=== PATIENT | male | born 1940 | race Caucasian/White ===

== ENCOUNTER → 2017-10-12 11:49 | Outpatient (CLI) | payer MEDICARE, BC, SELFPAY ==
[2017-10-12 12:28] VITALS: BP 132/65; PULSE 48; RESP 12; TEMP 36; O2SAT 98
[2017-10-12] MEDS: Dexamethasone Sod. Phos./Pres-Free 10 MG/ML VIAL IJ (12:43)
[2017-10-12] MEDS: Omnipaque 240 MG/ML 50 ML BTL IJ (12:43)
[2017-10-12 12:55] VITALS: BP 158/80; PULSE 55; RESP 19; O2SAT 98
--- NOTE | 2017-10-12 13:00 | DI.REPORT_ITS ---
SYMPTOMS/DIAGNOSIS: LUMBAR EPIDURAL STEROID INJECTION, LUMBAR RADICULOPATHY PAIN CLINIC: Fluoroscopy Time: 42.1 sec Images submitted from the pain clinic demonstrate needle positioning over the midline in the lower lumbar spine in connection with a lumbar epidural steroid injection. Please see Dr. Maya's procedure report for further information.
--- NOTE | 2017-10-12 13:01 | PDOC.PAIN_ITS ---
Date of Service: 10/12/17 Time of Service: 12:56 Pain Clinic Procedure Note CAUNDAL EPIDURAL STEROID WITH CATHETER INJECTION PROCEDURE NOTE COMMENTS: He had this before and did very well with it. DX: lumbar radiculopathy ROGELIO HELTON has been referred to the [facility] for lumbar epidural steroid injection. Patient was greeted by the nurse who verified patients name and . Patient was then taken to the fluoroscopy suite. Patient was interviewed and the medical record reviewed. There were no medical , pharmacologic, radiographic, or other structural contraindications to attempting fluoroscopically guided lumbar epidural steroid injection. Risks and expected side effects as well as potential benefits of the procedure were reviewed and voiced concerns addressed. The patient consent form was signed and witnessed. Standard time-out procedure was performed. Patient was placed in the prone position on the fluoroscopy table and automated blood pressure cuff and pulse oximeter applied. The skin entry point for entering/approaching the epidural space at the sacral hiatus and marked. Following thorough chlorhexadine preparation of the skin and draping and 1% lidocaine infiltration of the skin entry point and subcutaneous tissues, a 17 gauge Touhy needle was placed under fluoroscopic guidance and with loss of resistance technique into the epidural space. Needle tip placement and depth were aided and confirmed by fluoroscopy. There was no paresthesia or return of blood or CSF through the needle. An Arrow cath was thread to the L4 vertebral body and 1 cc's of Omnipaque 240 was injected with clear epidural spread confirmed with fluoroscopy. 15 mg Dexamethasone was injected. There was not any unusual discomfort expressed. Vital signs were stable throughout the procedure and were as recorded in nursing records. Follow up plans and appointments were discussed.Post procedure instruction was given as documented in nursing records and having met discharge criteria and was discharged from the [facility]. COMMENTS: Call with any problems or questions
== END ==
PROVIDERS: PCP Family Medicine; Visit Provider Preventive Medicine Occupational Medicine
DX: M54.16 Radiculopathy, lumbar region (principal)
CPT/HCPCS: 62323; 72100; Q9967

== ENCOUNTER 2017-12-05 10:12 | Outpatient (CLI) | payer MEDICARE, BC, SELFPAY ==
[2017-12-05 10:32] VITALS: BP 128/65; PULSE 54; RESP 20; TEMP 36.4; O2SAT 98
[2017-12-05] MEDS: methylPREDNISolone ACETATE 40 MG/ML VIAL IJ (11:10)
--- NOTE | 2017-12-05 11:22 | DI.RAD_ITS ---
SYMPTOMS/DIAGNOSIS: LUMBAR RADICULOPATHY C-ARM FLUOROSCOPY OF THE SPINE: Fluoroscopy Time: 19.5 sec, 5.37 mGy Fluoroscopy was provided for guidance with Pain Clinic injection. Hard copy images show placement of a needle at the L5-S1 level and an injection of contrast. Aortic and iliac stents are also noted. Please see procedure note for details.
[2017-12-05 11:25] VITALS: BP 151/84; PULSE 56; RESP 19; O2SAT 98
--- NOTE | 2017-12-05 11:25 | PDOC.PAIN ---
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 The last one was with dexamethasone and did not help. He has severe stenosis at L4-5 with claudication.: . . He has severe stenosis at L4-5 ROGELIO HELTON has been referred to the [facility] for lumbar epidural steroid injection. Patient was greeted by the nurse who verified patients name and . Patient was then taken to the fluoroscopy suite. Patient was interviewed and the medical record reviewed. There were no medical, pharmacologic, radiographic, or other structural contraindications to attempting fluoroscopically guided lumbar epidural steroid injection. Risks and expected side effects as well as potential benefits of the procedure were reviewed and voiced concerns addressed. The patient consent form was signed and witnessed. Standard time-out procedure was performed. Patient was placed in the prone position on the fluoroscopy table and automated blood pressure cuff and pulse oximeter applied. The skin entry point for entering/approaching the epidural space by a {L5-S1} and marked. Following thorough chlorhexadine preparation of the skin and draping and 1% lidocaine infiltration of the skin entry point and subcutaneous tissues, a 17 gauge Touhy needle was placed under fluoroscopic guidance and with loss of resistance technique into the epidural space. Needle tip placement and depth were aided and confirmed by fluoroscopy. There was no paresthesia or return of blood or CSF through the needle. An Arrow cath was thread to the {L4 midline} and 1 cc's of Omnipaque 240 was injected with clear epidural spread confirmed with fluoroscopy. 80mg depomedrol was injected. There was not any unusual discomfort expressed. Vital signs were stable throughout the procedure and were as recorded in nursing records. Follow up plans and appointments were discussed.Post procedure instruction was given as documented in nursing records and having met discharge criteria and was discharged from the [facility]. COMMENTS: Follow-up as needed. Repeat if he has some relief of pain that lasts for several months at least otherwise is to have surgical evaluation.
[2017-12-05] MEDS: Omnipaque 240 MG/ML 50 ML BTL IJ (11:27)
--- NOTE | 2017-12-05 11:29 | PDOC.PAIN_ITS ---
Pain Clinic Procedure Note Current Active Problems Problem Status Onset Spinal stenosis of lumbar region without neurogenic claudication Chronic EPIDURAL STEROID WITH CATHETER INJECTION PROCEDURE NOTE COMMENTS: Patient had 3 epidural steroid injections first 2 were with Depo- Medrol and lasted several months each. The last one was with dexamethasone and did not help. He has severe stenosis at L4-5 with claudication.: . . He has severe stenosis at L4-5 ROGELIO HELTON has been referred to the [facility] for lumbar epidural steroid injection. Patient was greeted by the nurse who verified patients name and . Patient was then taken to the fluoroscopy suite. Patient was interviewed and the medical record reviewed. There were no medical , pharmacologic, radiographic, or other structural contraindications to attempting fluoroscopically guided lumbar epidural steroid injection. Risks and expected side effects as well as potential benefits of the procedure were reviewed and voiced concerns addressed. The patient consent form was signed and witnessed. Standard time-out procedure was performed. Patient was placed in the prone position on the fluoroscopy table and automated blood pressure cuff and pulse oximeter applied. The skin entry point for entering/approaching the epidural space by a {L5-S1} and marked. Following thorough chlorhexadine preparation of the skin and draping and 1% lidocaine infiltration of the skin entry point and subcutaneous tissues, a 17 gauge Touhy needle was placed under fluoroscopic guidance and with loss of resistance technique into the epidural space. Needle tip placement and depth were aided and confirmed by fluoroscopy. There was no paresthesia or return of blood or CSF through the needle. An Arrow cath was thread to the {L4 midline} and 1 cc's of Omnipaque 240 was injected with clear epidural spread confirmed with fluoroscopy. 80mg depomedrol was injected. There was not any unusual discomfort expressed. Vital signs were stable throughout the procedure and were as recorded in nursing records. Follow up plans and appointments were discussed.Post procedure instruction was given as documented in nursing records and having met discharge criteria and was discharged from the [facility]. COMMENTS: Follow-up as needed. Repeat if he has some relief of pain that lasts for several months at least otherwise is to have surgical evaluation.
== END 2017-12-05 10:32 ==
PROVIDERS: PCP Family Medicine; Visit Provider Anesthesiology Pain Medicine
DX: M48.061 Spinal stenosis, lumbar region without neurogenic claudication (principal); G89.29 Other chronic pain
CPT/HCPCS: 62323; 72100; J1030; Q9967

== ENCOUNTER 2018-05-16 04:42 | Outpatient (CLI) | payer MEDICARE, BC, SELFPAY ==
[2018-05-16 11:09] LABS: Anion Gap 7.4 mmol/L (3-11); BUN 60 mg/dL (7-18); CO2 29.6 mmol/L (21.0-32.0); CREATININE 1.98 mg/dL (0.70-1.30); Calcium 9.2 mg/dL (8.5-10.1); Chloride 103 mmol/L (98-107); Estimated GFR 32.77 (mL/min/1.73m2); Glucose 95 mg/dL (70-100); Potassium 4.4 mmol/L (3.5-5.1); Sodium 140 mmol/L (136-145)
== END 2018-05-16 05:02 ==
PROVIDERS: PCP Family Medicine; Visit Provider Internal Medicine Nephrology
DX: N18.3 Chronic kidney disease, stage 3 (moderate) (principal)
CPT/HCPCS: 36415; 80048

== ENCOUNTER 2018-12-18 01:52 | Outpatient (CLI) | payer MEDICARE, BC, SELFPAY ==
[2018-12-18 12:59] LABS: Calculated LDL 78 mg/dL; Cholesterol 144 mg/dL (50-200); HDL Cholesterol 48 mg/dL (40-60); Triglyceride 92 mg/dL (30-150)
== END 2018-12-18 02:12 ==
PROVIDERS: PCP Family Medicine; Visit Provider Family Medicine
DX: I25.10 Atherosclerotic heart disease of native coronary artery without angina pectoris (principal)
CPT/HCPCS: 36415; 80061

== ENCOUNTER 2019-03-29 11:42 | Emergency (ER) | payer MEDICARE, BC, SELFPAY ==
[2019-03-29] VITALS (15 sets, daily range): BP systolic 155–164; BP diastolic 70–87; PULSE 59–86; RESP 14–20; TEMP 36.5–36.6; O2SAT 95–99
--- NOTE | 2019-03-29 11:59 | W.ED.GENAD ---
Discharge Plan Disposition Patient Disposition: HOME Condition: Fair Discharge Details Chief Complaint: Chest Pain Clinical Impression: Chest pain, Fatigue, RUMA (acute kidney injury) Primary Care Provider: Yvan Bhatia ED Provider: Martina Farrell Home Meds and New Rx's Prescriptions: Continued nystatin 100,000 unit/gram cream 1 applic TP BID Qty: 30 RF: 3 lamotrigine 150 mg tablet 150 mg PO As Directed Qty: 225 RF: 4 metoprolol succinate 200 mg tablet extended release 24 hr 200 mg PO DAILY Qty: 90 RF: 4 olanzapine [Zyprexa] 5 mg tablet 5 mg PO DAILY Qty: 90 RF: 4 simvastatin [Zocor] 40 mg tablet 40 mg PO HS Qty: 90 RF: 4 V-Xyxz-Slavlod 250 mg tablet 0.5 tab PO BID Qty: 180 RF: 4 aspirin 325 MG tablet 325 mg PO QAM RF: 0 nitroglycerin [Nitrostat] 0.4 MG tablet, sublingual 0.4 mg Sublingual PRN Qty: 25 RF: 4 triamcinolone acetonide 15 GM cream 15 gm Topical BID Qty: 1 RF: 6 finasteride [Proscar] 5 mg tablet 5 mg PO DAILY Qty: 90 RF: 4 ibuprofen 600 mg tablet 600 mg PO TID PRN (Reason: pain) Qty: 90 RF: 4 ipratropium bromide 42 mcg (0.06 %) spray,non-aerosol 2 spray NS TID PRN (Reason: allergy symptoms) Qty: 1 RF: 3 clonazepam 0.5 mg tablet 0.25 mg PO BID Qty: 90 RF: 3 Acetaminophen 500 MG capsule 500 mg PO Q4H PRN (Reason: Pain) Qty: 20 RF: 0 Discharge Instructions Instructions: Chest Pain (ED), Fatigue (ED) Additional Instructions: Encourage water intake. Please follow-up the beginning of next week with your primary care provider for reevaluation. You have a stress test next Monday, at 2:15 PM, please come to the radiology entrance. If you develop chest pain, shortness of breath, difficulty breathing or other worsening symptoms please seek care urgently once again. Referrals: Yvan Bhatia MD [Primary Care Provider] - Discharge Data Discharge Date/Time-TO BE ENTERED AT DEPARTURE: 03/29/19 16:35 Medical Decision Making Patient is a pleasant 78-year-old male presenting today with chief complaint of chest pain. He reports that for the past week he had increased fatigue. He reports that Monday he slept for approximately 24 hours. States that he has had this historically and associates this with episodes of bipolar. States that this did seem similar to that. Reports that on Monday he then had sudden onset of chest pain. He reports that he was at rest when this occurred. Reports 5 minutes of chest pain that suddenly resolved. He reports it is either another heart attack or to my bipolar. He denies having had chest pain associated with his bipolar issues historically. He was seen by his primary care provider today who referred him here for further evaluation. Patient does have history of 3 myocardial infarctions and stent placement. Patient is prescribed nitroglycerin but did not use this at the time of his discomfort. He denies any shortness of breath, back pain, radiation of the chest pain, nausea/vomiting, belly pain. No change in bowel or bladder function. He denies any fevers but states that he was having chills at the beginning of the week and felt more cold than typical. No recent travel. Past medical history concerning for AAA repair, Parkinson's disease, JONO, hypotonic bladder, hyperlipidemia, hypertension, depressed bipolar 1 disorder, CKD stage III, COPD, BPH. Patient took 325 mg of aspirin this morning. EKG was reviewed by Dr. Izaguirre. Patient in NSR with rate of 62. No change from prior ECG in 2008. He advises no acute ischemic changes. CXR reviewed by radiologist: LUNGS: Clear. No pleural abnormality seen. HEART: Normal. MEDIASTINUM: Normal. OTHER FINDINGS:Normal. BONE:Normal. IMPRESSION: No acute pulmonary finding. Labs reviewed. No leukocytosis, patient's not anemic. His creatinine is 2.83. He does have a history of chronic kidney disease but this is up from his baseline. He was last checked on 05/16/2018 at which time he was 1.98. BUN is 61. Patient reports that as he has to self cath, he does not drink any water. Patient is receiving hydration here. No significant electrolyte abnormalities. Initial troponin is less than 0.05. Plan for repeat troponin. With the acute kidney injury and the patient's history, I did discuss inpatient admission with him. As he would have to stay till Monday to have any further cardiac work-up completed as it is Monday, patient would prefer to go home. I did discuss this with Dr. Bhatia who advised that he would be able to follow-up closely with the patient and agrees that if repeat troponin is within normal limits outpatient management would be appropriate. We are able to schedule an outpatient stress test for Monday. Repeat troponin is less than 0.05. I discussed this finding with the patient. Again, we discussed in patient versus outpatient management of his symptoms and patient would prefer to be discharged home at this time. We did discuss at length if he has recurrent chest pain and that he should return immediately. We also discussed his acute kidney injury. He is followed closely by nephrology. I did encourage water intake despite the fact that this is more bothersome for him as he needs to urinate more frequently. He was given strict return precautions. He will follow-up with primary care. All his questions and concerns were addressed and is agreement this plan. He return immediately with any new or worsening symptoms. HPI General Mode of arrival: ambulatory. Date/Time Provider Initiated Documentation: 03/29/19 11:53. Limitations to Documentation: no limitations. Information obtained by: patient and RN notes reviewed. History of Present Illness 78 year old M presents to the emergency department with the chief complaint of chest pain, described as severe and similar to prior episodes, Quality is described as stabbing, and is localized to the chest. Patient reports no radiation. Patient started experiencing this day(s) (3) and it has been now resolved (lasted 5 minutes). No relieving factors improve symptom(s), No exacerbating factors reported . Patient notes no other symptoms.. Patient did receive the following treatments prior to arrival, none Related Data Home Medications Medication Instructions Recorded Confirmed aspirin 325 mg PO QAM 08/14/12 03/29/19 nitroglycerin [Nitrostat] 0.4 mg SUBLINGUAL PRN #25 08/14/12 03/29/19 Acetaminophen 500 mg PO Q4H PRN #20 cap 08/10/16 03/29/19 triamcinolone acetonide 15 gm TOPICAL BID #1 script 07/03/17 03/29/19 nystatin 100,000 unit/gram topical 1 applic TP BID #30 gm 04/12/18 03/29/19 cream finasteride 5 mg tablet 5 mg PO DAILY #90 tab-cap 08/21/18 03/29/19 lamotrigine 150 mg tablet 150 mg PO As Directed #225 tab-cap 08/21/18 03/29/19 metoprolol succinate 200 mg 200 mg PO DAILY #90 tab 08/21/18 03/29/19 tablet,extended release 24 hr olanzapine 5 mg tablet 5 mg PO DAILY #90 tab-cap 08/21/18 03/29/19 simvastatin 40 mg tablet 40 mg PO HS #90 tab 08/21/18 03/29/19 sodium di- and 0.5 tab PO BID #180 tab 08/21/18 03/29/19 monophosphate-potassium phos monobasic 250 mg tablet ibuprofen 600 mg tablet 600 mg PO TID PRN #90 tab-cap 11/08/18 03/29/19 ipratropium bromide 42 mcg (0.06 2 spray NS TID PRN #1 ml 11/08/18 03/29/19 %) nasal spray clonazepam 0.5 mg tablet 0.25 mg PO BID #90 tab-cap 03/27/19 03/29/19 Previous Rx's Medication Instructions Recorded Acetaminophen 500 mg PO Q4H PRN #20 cap 08/10/16 triamcinolone acetonide 15 gm TOPICAL BID #1 script 07/03/17 nystatin 100,000 unit/gram topical 1 applic TP BID #30 gm 04/12/18 cream finasteride 5 mg tablet 5 mg PO DAILY #90 tab-cap 08/21/18 lamotrigine 150 mg tablet 150 mg PO As Directed #225 tab-cap 08/21/18 metoprolol succinate 200 mg 200 mg PO DAILY #90 tab 08/21/18 tablet,extended release 24 hr olanzapine 5 mg tablet 5 mg PO DAILY #90 tab-cap 08/21/18 simvastatin 40 mg tablet 40 mg PO HS #90 tab 08/21/18 sodium di- and 0.5 tab PO BID #180 tab 08/21/18 monophosphate-potassium phos monobasic 250 mg tablet ibuprofen 600 mg tablet 600 mg PO TID PRN #90 tab-cap 11/08/18 ipratropium bromide 42 mcg (0.06 2 spray NS TID PRN #1 ml 11/08/18 %) nasal spray clonazepam 0.5 mg tablet 0.25 mg PO BID #90 tab-cap 02/12/20 Allergies Allergy/AdvReac Type Severity Reaction Status Date / Time lithium AdvReac Severe KIDNEY Verified 03/29/19 11:54 PROBLEM fluoxetine AdvReac Unknown Verified 03/29/19 11:54 General Stated Complaint: Chest Pain MATT: 3 Review of Systems Constitutional Constitutional: Reports as per HPI, Denies chills, Reports fatigue, Denies fever(s), Denies headache(s), Denies lethargy and Denies poor appetite Eyes Eyes: Denies change in vision ENT Ears, Nose, Mouth, and Throat: Denies dizziness and Denies headache(s) Cardiovascular Cardiovascular: Reports as per HPI, Reports chest pain, Reports chest pain at rest, Denies chest pain with activity, Denies diaphoresis, Denies syncope, Denies pedal edema, Denies leg edema, Denies lightheadedness, Denies radiating jaw, neck or arm pain, Denies palpitations, Denies dyspnea and Denies dyspnea on exertion Respiratory Respiratory: Reports as per HPI, Denies chest congestion, Denies cough, Denies pain on inspiration, Denies pain with cough, Denies dyspnea, Denies dyspnea on exertion and Denies wheezing Gastrointestinal Gastrointestinal: Reports as per HPI, Denies abdominal pain, Denies diarrhea, Denies nausea and Denies vomiting Genitourinary Genitourinary: Denies system reviewed and no additional complaints, except as docu (denies change in urinary habits) Musculoskeletal Musculoskeletal: Reports as per HPI and Denies back pain Integumentary/Breasts Skin/Breast: Reports as per HPI and Denies rash Neurologic Neurologic: Reports as per HPI, Denies dizziness, Denies syncope and Denies headache(s) Endocrine Endocrine: Reports fatigue and Denies palpitations Allergic/Immunologic Allergic/Immunologic: Denies wheezing [facility] Medical History Abdominal aortic aneurysm (AAA) Benign prostatic disease Chronic obstructive lung disease Chronic obstructive lung disease (Chronic) Chronic renal failure, stage 3 (moderate) Chronic renal failure, stage 3 (moderate) (Chronic 06/12/15) Claustrophobia Claustrophobia (Chronic 11/29/16) 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 HTN (hypertension) Hyperlipidemia Hyperlipidemia (Chronic) Hypotonic bladder Hypotonic bladder (Chronic) Neck pain (Inactive) Obstructive sleep apnea syndrome (Chronic) JONO (obstructive sleep apnea) Parkinson's disease Parkinson's disease (Chronic) mild Raised prostate specific antigen Spinal stenosis of lumbar region Spinal stenosis of lumbar region without neurogenic claudication (Chronic 11/29/16) Vasomotor rhinitis Vasomotor rhinitis (Chronic 03/27/15) Vitamin D deficiency Vitamin D deficiency (Chronic 09/15/16) Surgical History Angioplasty History of angioplasty (Inactive) History of intravascular stent placement (Inactive) Rotator Cuff Repair (~03/2008) Status post AAA (abdominal aortic aneurysm) repair (Chronic 11/29/16) Status post rotator cuff repair (Inactive) Stent placement X 3 Social History (Updated 08/22/18 @ 11:16 by Joby Woo) Smoking/Tobacco Use Status: Former Tobacco Use Second Hand Exposure: No Alcohol Intake: never Details: Pt reports he no longer drinks alcohol. Drug use: Never Substance use type: does not use Caregiver/Support person: No Housing: house Communication Needs: Hard of Hearing Do you need help understanding health information?: Often Pets and animals: No Sexually active: No Do you think of yourself as: straight/heterosexual Current gender identity: male What is your relationship status?: How often do you talk on the phone with friends or family?: once per week How often do you get together with friends or relatives?: decline to answer How often do you attend methodist or yazdanism services?: decline to answer Do you belong to any clubs or organized social groups?: no Panel score (0-1 are the most socially isolated patients): 0 What type of physical activity do you participate in: walking Duration: 15-30 minutes/day Frequency: 1-2 times per week Mary/Protestant: Taoism Special mary needs: No Seatbelt use: always Helmet use: Yes Helmet use: always Drive intox or ride w/intox commercial driver's license driver: No Do you feel safe at home: Yes Do you feel safe in your relationship?: Yes Exam Const General: cooperative, healthy appearing, comfortable, no acute distress and well developed Nutritional Appearance: well nourished and overweight Orientation: alert, awake and oriented x3 HENMT Head: normal to inspection Ears: hearing grossly normal bilaterally Mouth: moist mucous membranes Chest Chest: normal inspection of the chest, normal palpation of entire chest wall and no crepitus Resp Effort & Inspection: normal respiratory effort, able to speak in complete sentences and no respiratory distress Auscultation: clear to auscultation bilaterally, no rales, no rhonchi and no wheezes Cardio Rate: regular rate Rhythm: regular rhythm Heart Sounds: S1 normal and S2 normal GI Inspection: normal to inspection, no edema and non-distended Palpation: soft, no hepatosplenomegaly, not firm, no guarding, not rigid and nontender Auscultation: normal bowel sounds Back/Spine/Pelvis Back: no CVA tenderness Thoracic/Lumbar Spine: thoracic and lumbar spine normal to inspection Skin General skin exam: no rashes or lesions noted Trauma: no lacerations or abrasions Neuro General: alert, awake and oriented x3 Cognition: normal cognition Speech: speech normal Gait: normal gait Extrem General: normal to inspection, normal capillary refill, no pedal edema, no calf tenderness and normal gait Psych Appearance: grossly normal and well kempt Mental Status: mental status grossly normal Speech and Movement: speech and movement normal Course Vital Signs Vital signs: Vital Signs Temperature 36.5 C 03/29/19 11:49 Pulse 83 03/29/19 11:49 Respiratory Rate 16 03/29/19 11:49 Blood Pressure 156/87 H 03/29/19 11:49 Pulse Oximetry 98 03/29/19 11:49 Temperature 36.5 C 03/29/19 11:49 Temperature Source Tympanic 03/29/19 11:49 Pulse 83 03/29/19 11:49 Respiratory Rate 16 03/29/19 11:49 Respiratory Effort Non-Labored 03/29/19 11:52 Blood Pressure 156/87 H 03/29/19 11:49 Blood Pressure Position Sitting 03/29/19 11:49 Pulse Oximetry 98 03/29/19 11:49 Oxygen Delivery Method Room Air 03/29/19 11:49 Oxygen Flow Rate 0 03/29/19 11:49 Pain Level 10 03/29/19 11:49
--- NOTE | 2019-03-29 12:15 | DI.RAD_ITS ---
EXAM: XR CHEST 2V PA LATERAL CLINICAL HISTORY: CP 3 days ago, hx of DC. TECHNIQUE: 2D digital imaging was performed. COMPARISON: No exams were available for comparison FINDINGS: LUNGS: Clear. No pleural abnormality seen. HEART: Normal. MEDIASTINUM: Normal. OTHER FINDINGS:Normal. BONE:Normal. IMPRESSION: No acute pulmonary findings.
[2019-03-29 13:06] LABS: Abs Immature Grans 0.01 k/cumm (0.0-0.09); Absolute Basophil Count 0.02 k/cumm (0.0-0.2); Absolute Lymphocyte Count 1.77 k/cumm (1.2-3.4); Absolute Monocyte Count 0.45 k/cumm (0.11-0.7); Absolute Neutrophil Count 5.13 k/cumm (1.2-6.7); Basophils % 0.3; Eosinophils % 3.9; HCT 40.2 % (40.0-50.0); HGB 13.5 g/dL (13.5-17.5); Immature Grans % 0.1 %; Mean Corp. HGB Concentration 33.6 g/dL (32.0-36.0); Mean Corpuscular Hemoglobin 29.7 pg (27.0-33.0); Mean Corpuscular Volume 88.4 fL (80-95); Monocytes % 5.9; Neutrophils % 66.8; Platelet Count 238 x1000/uL (130-400); RBC 4.55 m/cumm (4.50-6.00); RBC Distribution Width 13.9 % (11.8-14.1); White Blood Cell Count 7.68 k/cumm (4.4-10.8)
[2019-03-29] MEDS: Normal Saline 1,000 ML 125 ML IV (13:06)
[2019-03-29 13:30] LABS: ALT 17 U/L (16-63); AST 21 U/L (15-37); Albumin 3.3 g/dL (3.4-5.0); Alkaline Phosphatase 115 U/L (46-116); Anion Gap 9.6 mmol/L (3-11); BUN 61 mg/dL (7-18); Bilirubin, Total 0.2 mg/dL (0.2-1.0); CO2 25.4 mmol/L (21.0-32.0); CREATININE 2.83 mg/dL (0.70-1.30); Calcium 9.1 mg/dL (8.5-10.1); Chloride 108 mmol/L (98-107); Estimated GFR 21.64 (mL/min/1.73m2); Glucose 117 mg/dL (74-106); Magnesium 1.9 mg/dL (1.8-2.4); Potassium 3.5 mmol/L (3.5-5.1); Sodium 143 mmol/L (136-145); Total Protein 6.5 g/dL (6.4-8.2); Troponin I 0.05 ng/Ml (<0.06)
[2019-03-29 15:59] LABS: Troponin I 0.05 ng/Ml (<0.06)
== END 2019-03-29 16:35 | disposition home or self-care (01) ==
PROVIDERS: Emergency Provider Physician Assistant; PCP Family Medicine
DX: R53.83 Other fatigue (principal); R07.9 Chest pain, unspecified; N17.9 Acute kidney failure, unspecified; I25.2 Old myocardial infarction; Z95.5 Presence of coronary angioplasty implant and graft; G20 Parkinson's disease; I12.9 Hypertensive chronic kidney disease with stage 1 through stage 4 chronic kidney disease, or unspecified chronic kidney disease; N18.3 Chronic kidney disease, stage 3 (moderate); J44.9 Chronic obstructive pulmonary disease, unspecified; Z87.891 Personal history of nicotine dependence
CPT/HCPCS: 36415; 80053; 93005; 96360; 96361; 99285; 71046; 81003; 83735; 84484; 85025; 93010

== ENCOUNTER 2019-04-02 01:14 | Outpatient (CLI) | payer MEDICARE, BC, SELFPAY ==
--- NOTE | 2019-04-02 14:30 | ETT_ITS ---
APPROVED REPORT Exam: Exercise Treadmill Patient Location: Out-Patient Room/Bed: Stress Nurse: Isamar Bobo RN BMI: 28.78 Baseline Rhythm: Sinus Bradycardia Comment: R BBB and Occasional PVC's Indications: Patient testing today for further risk stratification. Patient reports he had an episode of left sided chest pain (09/22) which radiated to bilateral shoulders when washing his dishes last w [employer]. He states chest pain when away after 5 minutes of walking in his house. Of note, patient is a po or historian. Medical History Medical History: AAA repair 2017, chronic renal failure stage 3, Chronic Obstructive Lung Disease, Co ronary artery abnormality, depressed bipolar disorder, JONO, Parkinson???s Disease. Cardiac Medications: Aspirin, Nitrostat, Metoprolol Succinate XR, Simvastatin. Allergies: [place], Fluoxetine Cardiac Risk Factors: FHX of CAD, HTN, Hyperlipidemia, COPD Previous Cardiac Procedures: Angioplasty LAD 1995, Stent X3 2004. Pretest Chest Pain Characteristics: No chest pain Exercise History: Sedentary Physical Disabilities: Legs Lung Sounds: Clear to auscultation and diminished Heart Sounds: Regular Stress Test Details Test: Exercise stress testing was performed using a Jim protocol. Rest Stress HR Resting HR Supine: 50 bpm Max Heart Rate (APMHR): 140 bpm Resting HR Standin bpm Target HR (85% APMHR): 119 bpm Max HR Achieved: 117 bpm % of APMHR: 83 HR response to stress: Normal HR response to stress BP Resting BP Supine: 140/70 mmHg Resting BP Standin/70 mmHg Max BP: 150/58 mmHg BP response to stress: Normal blood pressure response to stress. ECG Resting ECG: RBBB Stress ECG: Sinus Rhythm, RBBB ST Change: Non-ischemic Arrhythmia: VPC's Recovery ECG: RBBB Clinical Reason for Termination: Patient having difficulty walking in treadmill safely Stress Symptoms: Patient reported left shoulder pain at approximatly 2 minutes 27 seconds of exercise --Patient poor historian--difficult to get more infomation from patient. Exercise duration: 3 min10 sec Highest Stage Reached: Stage 2: 2.5 mph at 12% grade. Exercise capacity: 4.82 METs Functional Capacity: Markedly diminished capacity Stress ECG Conclusion 1. Limited exercise tolerance of 4.82 METS. The patient described shoulder pain after 2-1/2 minutes of exercise 2. Normal heart rate and blood pressure response to exercise 3. Resting electrocardiogram shows right bundle branch block. Patient achieved 83% of predicted hear t rate for age without evidence of myocardial ischemia at this submaximal heart rate 4. Occasional ventricular ectopic beats were noted Protocol Used: Jim Protocol Stress Test Summary STAGE Time (mins) Speed (mph) Grade (%) HR BP SYMPTOMS METS Supine 50 140/70 Standing 54 130/70 1 3 1.7 10 4.6 2 6 2.5 12 7 3 9 3.4 14 10.2 4 12 4.2 16 12.9 5 15 5.0 18 17.2 1 min recovery 63 150/58 3 min recovery 49 130/68 6 min recovery 54 122/68
== END 2019-04-02 01:34 ==
PROVIDERS: PCP Family Medicine; Visit Provider Physician Assistant
DX: R07.9 Chest pain, unspecified (principal); N18.3 Chronic kidney disease, stage 3 (moderate); F31.9 Bipolar disorder, unspecified; I10 Essential (primary) hypertension; Z82.49 Family history of ischemic heart disease and other diseases of the circulatory system
CPT/HCPCS: 93016; 93018; 93017

== ENCOUNTER 2019-05-08 21:57 | Inpatient (IN) | payer MEDICARE, BC, SELFPAY ==
[2019-05-08] VITALS (13 sets, daily range): BP systolic 37–135; BP diastolic 27–106; PULSE 46–180; RESP 0–27; TEMP 30.1–31.4; O2SAT 93–100
--- NOTE | 2019-05-08 22:07 | W.ED.GENAD ---
Discharge Plan Disposition Patient Disposition: [facility] INPATIENT Condition: Serious Discharge Details Chief Complaint: AMS/LOC Clinical Impression: Hypothermia, Acute renal failure due to rhabdomyolysis, Electrolyte abnormality, Acute UTI Primary Care Provider: Yvan Bhatia ED Provider: Roberto Love [place] Meds and New Rx's Prescriptions: No Action nystatin 100,000 unit/gram cream 1 applic TP BID Qty: 30 RF: 3 clonazepam 0.5 mg tablet 0.25 mg PO DAILY Qty: 45 RF: 3 lamotrigine 150 mg tablet 150 mg PO As Directed Qty: 225 RF: 4 metoprolol succinate 200 mg tablet extended release 24 hr 200 mg PO DAILY Qty: 90 RF: 4 olanzapine [Zyprexa] 5 mg tablet 5 mg PO DAILY Qty: 90 RF: 4 simvastatin [Zocor] 40 mg tablet 40 mg PO HS Qty: 90 RF: 4 I-Pehm-Dynbdzb 250 mg tablet 0.5 tab PO BID Qty: 180 RF: 4 aspirin 325 MG tablet 325 mg PO QAM RF: 0 nitroglycerin [Nitrostat] 0.4 MG tablet, sublingual 0.4 mg Sublingual PRN Qty: 25 RF: 4 triamcinolone acetonide 15 GM cream 15 gm Topical BID Qty: 1 RF: 6 finasteride [Proscar] 5 mg tablet 5 mg PO DAILY Qty: 90 RF: 4 ibuprofen 600 mg tablet 600 mg PO TID PRN (Reason: pain) Qty: 90 RF: 4 ipratropium bromide 42 mcg (0.06 %) spray,non-aerosol 2 spray NS TID PRN (Reason: allergy symptoms) Qty: 1 RF: 3 Acetaminophen 500 MG capsule 500 mg PO Q4H PRN (Reason: Pain) Qty: 20 RF: 0 Medical Decision Making Patient arrives after being found down at home for unknown period of time. He is cold and cyanotic distally but is mentating essentially normally. He denies cough or shortness of breath. He denies pain. Second IV established. Temperature sensing Amaya placed. C-collar applied due to extensive bruising noted. Fluid resuscitation with warm LR initiated. Laboratory studies and CT scans ordered. Bear hugger applied. Initial consideration for COVID, though patient denies exposure and denies cough or shortness of breath. Patient mentation seemed to improve with fluids. Laboratory studies are markedly abnormal as expected. White count is elevated to 14. Hemoglobin and platelets are normal. Chemistry significant for potassium of 6.2, bicarb of 14.2 with an anion gap of 27, BUN 136 and creatinine 6.3. Magnesium high at 2.8. Calcium good at 8.3. CPK markedly elevated and greater than 10,000. Troponin 0.2 likely related to kidney injury and not infarction. Lactic acid 4.9. Liver functions elevated with AST 500 and ALT 150s. Urinalysis with UTI. Ceftriaxone ordered. After the initial 2 L fluid resuscitation with LR he was switched to saline for management of rhabdomyolysis. Initial rate ordered for [address] mL's per [address] scans are all negative for acute injury. Head CT negative. Cervical spine without fracture. Chest abdomen pelvis negative for traumatic injury and negative for acute changes specifically no pneumonia. COVID swab is canceled. Patient without symptoms, no CT findings, no exposure. He is UTI with hypothermia and rhabdomyolysis. He does have acute kidney injury and electrolyte abnormalities which will need to be followed closely. Case is discussed with hospitalist. Patient to be admitted to the ICU for further management. I have spoke to the patient son Adán, who lives in [facility]. Patient's daughter and son from [place] and [place] respectively are on their way. They are aware that they will not be allowed to visit. Confirmed with family that patient will be full code. Medical Records Medical records reviewed: Yes I reviewed the patient's medical records. Lab Data Lab results reviewed: Yes I reviewed the patient's lab results. ECG Data Attestation: I personally reviewed and interpreted this ECG (s) as follows: Prior ECG tracings: available for review Interpretation: EKG shows atrial fibrillation which is rate controlled at 55. He has normal right bundle branch block/left anterior fascicular block. QT appears a little long though not markedly so. No acute ST elevation or depression. HPI General Mode of arrival: EMS. Date/Time Provider Initiated Documentation: 05/08/19 22:06. Limitations to Documentation: no limitations. Information obtained by: patient, EMS and old records reviewed. HPI Narrative: Patient is brought in by EMS after being found down on the floor at his home this evening. Patient is last known to be fine on Monday. Meals on wheels then delivering food for him. This evening it was noticed that he had not taken in the meals delivered previously. They decided to check on him. He was found down on the floor in his underwear too weak to get up but awake and conversant. EMS was called. Patient found to be hypothermic. He was awake and alert. No complaints of pain anywhere. Noted to be mottled with bruising and abrasions all over. IV was established and patient transported here for further evaluation and management. On arrival he has no complaint of pain. He is not able to tell me how long he was down for. He denies having cough or shortness of breath. He denies vomiting or diarrhea. Related Data Home Medications Medication Instructions Recorded Confirmed aspirin 325 mg PO QAM 08/14/12 04/09/19 nitroglycerin [Nitrostat] 0.4 mg SUBLINGUAL PRN #25 08/14/12 04/09/19 Acetaminophen 500 mg PO Q4H PRN #20 cap 08/10/16 04/09/19 triamcinolone acetonide 15 gm TOPICAL BID #1 script 07/03/17 04/09/19 nystatin 100,000 unit/gram topical 1 applic TP BID #30 gm 04/12/18 04/09/19 cream finasteride 5 mg tablet 5 mg PO DAILY #90 tab-cap 08/21/18 04/09/19 lamotrigine 150 mg tablet 150 mg PO As Directed #225 tab-cap 08/21/18 04/09/19 metoprolol succinate 200 mg 200 mg PO DAILY #90 tab 08/21/18 04/09/19 tablet,extended release 24 hr olanzapine 5 mg tablet 5 mg PO DAILY #90 tab-cap 08/21/18 04/09/19 simvastatin 40 mg tablet 40 mg PO HS #90 tab 08/21/18 04/09/19 sodium di- and 0.5 tab PO BID #180 tab 08/21/18 04/09/19 monophosphate-potassium phos monobasic 250 mg tablet ibuprofen 600 mg tablet 600 mg PO TID PRN #90 tab-cap 11/08/18 04/09/19 ipratropium bromide 42 mcg (0.06 2 spray NS TID PRN #1 ml 11/08/18 04/09/19 %) nasal spray clonazepam 0.5 mg tablet 0.25 mg PO DAILY #45 tab-cap 04/09/19 04/09/19 Previous Rx's Medication Instructions Recorded Acetaminophen 500 mg PO Q4H PRN #20 cap 08/10/16 triamcinolone acetonide 15 gm TOPICAL BID #1 script 07/03/17 nystatin 100,000 unit/gram topical 1 applic TP BID #30 gm 04/12/18 cream finasteride 5 mg tablet 5 mg PO DAILY #90 tab-cap 08/21/18 lamotrigine 150 mg tablet 150 mg PO As Directed #225 tab-cap 08/21/18 metoprolol succinate 200 mg 200 mg PO DAILY #90 tab 08/21/18 tablet,extended release 24 hr olanzapine 5 mg tablet 5 mg PO DAILY #90 tab-cap 08/21/18 simvastatin 40 mg tablet 40 mg PO HS #90 tab 08/21/18 sodium di- and 0.5 tab PO BID #180 tab 08/21/18 monophosphate-potassium phos monobasic 250 mg tablet ibuprofen 600 mg tablet 600 mg PO TID PRN #90 tab-cap 11/08/18 ipratropium bromide 42 mcg (0.06 2 spray NS TID PRN #1 ml 11/08/18 %) nasal spray clonazepam 0.5 mg tablet 0.25 mg PO DAILY #45 tab-cap 04/09/19 Allergies Allergy/AdvReac Type Severity Reaction Status Date / Time lithium AdvReac Severe KIDNEY Verified 04/09/19 15:12 PROBLEM fluoxetine AdvReac Unknown Verified 04/09/19 15:12 General MATT: 3 Review of Systems Unobtainable due to (Not obtained due to acuity of situation) [facility] Medical History Abdominal aortic aneurysm (AAA) Benign prostatic disease Chronic obstructive lung disease (Chronic) Chronic renal failure, stage 3 (moderate) (Chronic 06/12/15) Claustrophobia (Chronic 11/29/16) Coronary atherosclerosis of [place] coronary vessel (Chronic) angina-1995 LAD angioplasty; Stent in 2004 x3 Depressed bipolar I disorder (Chronic) Hearing loss (Chronic) A.D. HTN (hypertension) Hyperlipidemia (Chronic) Hypotonic bladder (Chronic) JONO (obstructive sleep apnea) Parkinson's disease (Chronic) mild Spinal stenosis of lumbar region Vasomotor rhinitis (Chronic 03/27/15) Vitamin D deficiency (Chronic 09/15/16) Surgical History History of angioplasty (Inactive) History of intravascular stent placement (Inactive) Status post AAA (abdominal aortic aneurysm) repair (Chronic 11/29/16) Status post rotator cuff repair (Inactive) Social History Smoking/Tobacco Use Status: Former Tobacco Use Second Hand Exposure: No Alcohol Intake: never Details: Pt reports he no longer drinks alcohol. Drug use: Never Substance use type: does not use Caregiver/Support person: No Housing: house Communication Needs: Hard of Hearing Do you need help understanding health information?: Often Pets and animals: No Sexually active: No Do you think of yourself as: straight/heterosexual Current gender identity: male What is your relationship status?: How often do you talk on the phone with friends or family?: once per week How often do you get together with friends or relatives?: decline to answer How often do you attend religion or confucianist services?: decline to answer Do you belong to any clubs or organized social groups?: no Panel score (0-1 are the most socially isolated patients): 0 What type of physical activity do you participate in: walking Duration: 15-30 minutes/day Frequency: 1-2 times per week Mary/Worship: Hinduism Special mary needs: No Seatbelt use: always Helmet use: Yes Helmet use: always Drive intox 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 Heart rate and blood pressure otherwise good as is his O2 saturations once good waveform is obtained. Const: WDWN elderly male in NAD. HEENT: NC/AT. Normal facial exam. Eyes: Normal conjunctiva and sclera. Neck: Supple. Trachea midline. No c-spine tenderness. Lungs: Normal respiratory effort. Lungs with slight wheeze/rhonchi right lateral. Cor: RRR without murmur/gallop. Diminished distal pulses but present on doppler. GI: Soft. NT/ND. No guarding or rebound. Back: No spinal tenderness. Neuro: A+O x 3. Normal speech, mentation a little slow. Cranial nerves II - XII grossly intact. No gross motor or sensory deficit. Ext: Distal extremities cyanotic and cold. No deformity or tenderness. Skin: Cold and dry. Large abrasions bilateral knees. Multiple areas of bruising noted throughout including back/arms/legs. Critical Care Time Critical Care Time Critical Care Time: Yes Total Critical Care Time: 60 Attestation: Upon my evaluation, this patient had a high probability of imminent or life-threatening deterioration, which required my direct attention, intervention, and personal management. I have personally provided minutes of critical care time exclusive of time spent on separately billable procedures. Time includes review of laboratory data, radiology results, discussion with consultants, and monitoring for potential decompensation. Interventions were performed as documented above.
[2019-05-08] MEDS: Lactated Ringers 1,000 ML 1000 ML IV ×2 (22:15)
[2019-05-08 22:30] LABS: HCT 48.4 % (40.0-50.0); HGB 16.5 g/dL (13.5-17.5); Mean Corp. HGB Concentration 34.1 g/dL (32.0-36.0); Mean Corpuscular Hemoglobin 29.5 pg (27.0-33.0); Mean Corpuscular Volume 86.6 fL (80-95); Mean Platelet Volume 10.6 fL (8.0-11.0); Platelet Count 198 x1000/uL (130-400); RBC 5.59 m/cumm (4.50-6.00)
[2019-05-08 22:32] LABS: Lactate 4.5 mmol/L (0.6-1.4)
[2019-05-08 22:35] LABS: Bilirubin Negative (Negative); Blood Large (Negative); Clarity Cloudy (Clear); Glucose Negative (Negative); Ketones Negative (Negative); Leukocyte Esterase Large (Negative); Nitrite Negative (Negative); Specific Gravity >= 1.030 (1.005-1.025); Urobilinogen 0.2 EU/dL (Up TO 0.2)
--- NOTE | 2019-05-08 22:37 | NUR.NOTE ---
Nursing Note:Glen hugger and warmed IVF started upon arrival.
[2019-05-08 22:41] LABS: Absolute Lymphocyte Count 0.42 k/cumm (1.2-3.4); Absolute Monocyte Count 0.71 k/cumm (0.11-0.7); Absolute Neutrophil Count 12.83 k/cumm (1.2-6.7)
[2019-05-08 22:42] LABS: Diff Comment Manual Differential; RBC Morphology Normal
[2019-05-08 22:46] LABS: WBC >50 HPF (0-5)
[2019-05-08 22:47] LABS: INR 1.3 (0.9-1.1); PTT Activated 29.4 sec (21.0-31.4)
[2019-05-08 22:51] LABS: Bacteria Many HPF (Negative); C & S Indicated? Yes
[2019-05-08 22:58] LABS: ALT 159 U/L (16-63); AST 535 U/L (15-37); Albumin 3.7 g/dL (3.4-5.0); Alkaline Phosphatase 169 U/L (46-116); Anion Gap 26.8 mmol/L (3-11); Bilirubin, Total 1.4 mg/dL (0.2-1.0); CO2 14.2 mmol/L (21.0-32.0); Calcium 8.3 mg/dL (8.5-10.1); Chloride 104 mmol/L (98-107); Estimated GFR 8.55 (mL/min/1.73m2); Glucose 144 mg/dL (74-106); Magnesium 2.8 mg/dL (1.8-2.4); Sodium 145 mmol/L (136-145); TSH (W/Ref FT4) 3.11 uIU/mL (0.36-3.74); Total Protein 7.3 g/dL (6.4-8.2)
[2019-05-08 23:00] LABS: Ferritin 563 ng/mL (26-388)
[2019-05-08] MEDS: Normal Saline 1,000 ML 200 ML IV ×2 (23:15)
[2019-05-08 23:19] LABS: BUN 136 mg/dL (7-18); CREATININE 6.33 mg/dL (0.70-1.30)
[2019-05-08 23:20] LABS: Creatine Kinase > 10000 U/L (39-308); Potassium 6.2 mmol/L (3.5-5.1)
--- NOTE | 2019-05-08 23:22 | DI.CT_ITS ---
EXAM: CT HEAD CERVICAL SPINE WO CLINICAL HISTORY: found down; bruising everywhere; altered. TECHNIQUE: Imaging Protocol: Axial computed tomography images with coronal and sagittal reformatted images were created and reviewed COMPARISON: HEAD AND CSPINE W/O CONTRAST from 03/02/2016 FINDINGS: CT Head: Ventricles and Extra axial spaces: There is prominence of the ventricles and sulci consistent with ce rebral atrophy. Hemorrhage: None. Cerebral parenchyma: There are areas of decreased attenuation in the white matter consistent with sma ll vessel ischemic disease. No acute territorial infarct is present. Midline shift: None. Brainstem/Cerebellum: Normal. Calvarium: Normal. Visualized Paranasal sinuses/Mastoids: Postsurgical changes are present with bilateral antrectomies. There is mucosal thickening in the maxillary sinuses and ethmoid air cells. No fluid levels are see n in the sinuses. The mastoid air cells are well pneumatized. Soft Tissues: Unremarkable. CT Cervical Spine: Bones: No acute fracture or subluxation. There is a round lucency in the C4 vertebral body likely ref lecting a benign hemangioma. No osseous destructive changes are seen. There are degenerative change s present throughout the cervical spine. There is ankylosis of the C 6 and C7 vertebral bodies. The re also appears to be partial ankylosis of the C1-C2 articulation anteriorly. Soft Tissues: Soft tissue calcifications are seen posteriorly. No prevertebral soft tissue swelling is seen. Lung Apices: Clear. IMPRESSION: 1. No acute intracranial process. 2. No acute fracture or subluxation in the cervical spine. RADIATION DOSE DELIVERED: DATA REPOSITORY: All CT scans at this facility are submitted to the National Radiology Data Registry (NRDR) Dose Index Registry (DIR) with the [employer] (ACR). RADIATION OPTIMIZATION: All CT scans at this facility use at least one of these dose optimization te chniques: automated exposure control; mA and/or kV adjustment per patient size (includes targeted exa ms where dose is matched to clinical indication); or iterative reconstruction.
--- NOTE | 2019-05-08 23:22 | DI.CT_ITS ---
EXAM: CT CHEST/ABD/PEL WO CLINICAL HISTORY: found down; altered; bruising everywhere. TECHNIQUE: Imaging Protocol: Axial computed tomography images with coronal and sagittal reformatted images were created and reviewed COMPARISON: No exams were available for comparison FINDINGS: CHEST: Thyroid: Bilateral subcentimeter hypodensities in the thyroid gland. Calcified density in the right lobe. Tracheobronchial tree: Patent where visualized. Mediastinum and Dona: No dominant adenopathy or fluid collection. Pulmonary parenchyma: No consolidation or dominant measurable mass. No architectural distortion. Pleura: No effusion or pneumothorax. Lymph nodes: Within normal limits. Aorta: Thoracic portion non-dilated. Atherosclerosis. Heart: Not enlarged. Moderate coronary artery calcifications. No significant pericardial effusion. Bones: Degenerative changes are present. There is a left total shoulder replacement. Degenerative c hanges are seen in the right shoulder. No acute fracture or subluxation is seen. Soft tissues: Bilateral gynecomastia. ABDOMEN: Liver: Normal density. There is a tiny hypodensity in the left lobe of the liver which is too small f or further characterization but likely reflects a small cyst. Gallbladder and biliary tract: No radiodense calculus or dilation. Pancreas: Normal density, no abnormal calcifications or inflammatory process. Spleen: Normal. Kidneys: Bilateral renal cortical atrophy is present. The findings are more prominent on the right. No radiodense stones or obstructive uropathy. There is a cyst on the right kidney. Adrenal glands: No masses seen. Aorta: There is a 5.5 cm abdominal aortic aneurysm. An aorto- bi iliac endograft stent is in place. The lack of contrast limits evaluation of the aortic aneurysm. Lymph nodes: Within normal limits. PELVIS: Bladder: Urinary bladder is incompletely distended with a Amaya catheter in place. There is diffuse thickening of the wall of the urinary bladder. There is asymmetric thickening on the left aspect of the urinary bladder and a mass cannot be excluded. Air is seen within the urinary bladder likely ref lecting recent instrumentation by the Amaya catheter. Bowel: No obstruction or bowel wall thickening. Normal appendix. Peritoneal cavity: No ascites, collection or mesenteric inflammatory response. Bones: Multilevel degenerative changes are present. No acute fracture is identified. Reproductive organs: Enlarged prostate gland. IMPRESSION: 1. No acute abdominal or pelvic process. 2. Findings in the urinary bladder as described above. Follow-up as clinically appropriate. 3. No acute thoracic abnormality. DATA REPOSITORY: All CT scans at this facility are submitted to the National Radiology Data Registry (NRDR) Dose Index Registry (DIR) with the [employer] (ACR). RADIATION OPTIMIZATION: All CT scans at this facility use at least one of these dose optimization te chniques: automated exposure control; mA and/or kV adjustment per patient size (includes targeted exa ms where dose is matched to clinical indication); or iterative reconstruction.
[2019-05-08 23:24] LABS: LDH 1097 U/L (85-227)
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
[2019-05-08] MEDS: cefTRIAXone 2 GM/50 ML BAG IVPB (23:41)
--- NOTE | 2019-05-08 23:44 | DI.VRAD_ITS ---
PROCEDURE INFORMATION: Exam: CT Head Without Contrast Exam date and time: 05/08/2019 23:05 Age: 78 years old Clinical indication: Injury or trauma; Fall; Initial encounter; Blunt trauma (contusions or hematomas); Consciousness not specified; Injury details: PT found down, unknown amount of time; Altered; Bruising everywhere TECHNIQUE: Imaging protocol: Computed tomography of the head without contrast. Radiation optimization: All CT scans at this facility use at least one of these dose optimization techniques: automated exposure control; mA and/or kV adjustment per patient size (includes targeted exams where dose is matched to clinical indication); or iterative reconstruction. COMPARISON: No relevant prior studies available. FINDINGS: Brain: Moderate cerebral atrophy. Physiologic calcification in the basal ganglia. Minimal periventricular white matter hypodensity. No edema or hemorrhage. Ventricles: No ventriculomegaly. Bones/joints: No acute fracture. Sinuses: Maxillary antrectomies. Minor mucosal thickening in the maxillary sinuses. No significant air-fluid levels. Mastoid air cells: No mastoid effusion. Soft tissues: No suspicious lesions. IMPRESSION: No acute intracranial findings. PROCEDURE INFORMATION: Exam: CT Cervical Spine Without Contrast Exam date and time: 05/08/2019 23:05 Age: 78 years old Clinical indication: Injury or trauma; Fall; Initial encounter; Blunt trauma (contusions or hematomas); Consciousness not specified; Injury details: PT found down, unknown amount of time; Altered; Bruising everywhere TECHNIQUE: Imaging protocol: Computed tomography images of the cervical spine without contrast. Radiation optimization: All CT scans at this facility use at least one of these dose optimization techniques: automated exposure control; mA and/or kV adjustment per patient size (includes targeted exams where dose is matched to clinical indication); or iterative reconstruction. COMPARISON: No relevant prior studies available. FINDINGS: Vertebrae: Subcentimeter lucencies C4 vertebral body, probably a benign hemangioma however please correlate clinically as to any known history of primary malignancy and consider further workup as clinically indicated. Partial ankylosis, C5 C6 and C7 appearing chronic. Significant osteophytosis at this level. Posterior disc osteophyte complexes, multilevel, at least mild central canal stenosis C3-C4 and likely mild at C6-C7. Multilevel neural foraminal stenosis. No acute fracture or subluxation. Discs/Spinal canal/Neural foramina: C1-C2: Partial ankylosis C1-C2 anteriorly appearing chronic and degenerative. Soft tissues: Coarse calcifications in the region of ligamentum nuchae, probably chronic soft tissue trauma. Lungs: No consolidation. Vasculature: Small amounts of gas in vascular structures likely relating to IV access. Atherosclerosis. Other findings: Uncovertebral hypertrophy. IMPRESSION: No cervical spine fracture. Nonurgent findings as above. Dictated and Authenticated by: Seema Mora MD. Ordering:ОЛЕГ Mejia MD
--- NOTE | 2019-05-08 23:51 | HPE_ITS ---
Date of service: 05/08/19 Time of Service: 23:51 Assessment and Plan Assessment and plan (1) Rhabdomyolysis: Status: Acute Assessment and plan: Rhabdo secondary to prolonged immobilization and subsequent ARF. From patient description sounds like mechanical fall but at this point cannot be certain there was not some inciting medical event. Pyuria noted, UTI possible factor. All in setting of hypothermia due to prolonged exposure. Will continue warming, IVF, monitor renal function and electrolytes, maintain telemetry. Hypothermia: warming blankets, warm IVF Rhabdo: IVF, monitor renal function and CPK Hyperkalemia: Insulin/D50, Kayexalate, monitor Pyuria: await culture, continue Rocephin Will hold usual meds until stabilizes. History of Present Illness History of Present Illness Chief Complaint: found down Narrative: 78 male found by meal delivery service down on floor. Patient states he tripped 2 days ago couldn't get up. In ER finidngs of note for temp 30.1 C, ARF with BUN 136m Creatinine 6.3; CPK > 10,000 and gross pyuria. Patient gievn IVF and placed on heating blanket, admitted for further management. Also dose Rocephin. CT head, neck chest and abdomen w/o acute findings. EKG shows AF, no Lilly wave present; QRS 154, QT 538. 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 HTN (hypertension) Hyperlipidemia Hyperlipidemia (Chronic) Hypotonic bladder Hypotonic bladder (Chronic) Neck pain (Inactive) Obstructive sleep apnea syndrome (Chronic) JONO (obstructive sleep apnea) Parkinson's disease Parkinson's disease (Chronic) mild Raised prostate specific antigen Spinal stenosis of lumbar region Spinal stenosis of lumbar region without neurogenic claudication (Chronic 11/29/16) Vasomotor rhinitis Vasomotor rhinitis (Chronic 03/27/15) Vitamin D deficiency Vitamin D deficiency (Chronic 09/15/16) Social History (Updated 08/22/18 @ 11:16 by Joby Woo) Smoking/Tobacco Use Status: Former Tobacco Use Second Hand Exposure: No Alcohol Intake: never Details: Pt reports he no longer drinks alcohol. Drug use: Never Substance use type: does not use Caregiver/Support person: No Housing: house Communication Needs: Hard of Hearing Do you need help understanding health information?: Often Pets and animals: No Sexually active: No Do you think of yourself as: straight/heterosexual Current gender identity: male What is your relationship status?: How often do you talk on the phone with friends or family?: once per week How often do you get together with friends or relatives?: decline to answer How often do you attend anglican or protestant services?: decline to answer Do you belong to any clubs or organized social groups?: no Panel score (0-1 are the most socially isolated patients): 0 What type of physical activity do you participate in: walking Duration: 15-30 minutes/day Frequency: 1-2 times per week Mary/Scientology: Cheondoism Special mary needs: No Seatbelt use: always Helmet use: Yes Helmet use: always Drive 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 Do you feel safe at home: Yes Do you feel safe in your relationship?: Yes Meds Home Medications and Allergies Home Medications Medication Instructions Recorded Confirmed Type aspirin 325 mg PO QAM 08/14/12 04/09/19 History nitroglycerin [Nitrostat] 0.4 mg SUBLINGUAL PRN #25 08/14/12 04/09/19 History Acetaminophen 500 mg PO Q4H PRN #20 cap 08/10/16 04/09/19 Rx triamcinolone acetonide 15 gm TOPICAL BID #1 script 07/03/17 04/09/19 Rx nystatin 100,000 unit/gram topical 1 applic TP BID #30 gm 04/12/18 04/09/19 Rx cream finasteride 5 mg tablet 5 mg PO DAILY #90 tab-cap 08/21/18 04/09/19 Rx lamotrigine 150 mg tablet 150 mg PO As Directed #225 tab-cap 08/21/18 04/09/19 Rx metoprolol succinate 200 mg 200 mg PO DAILY #90 tab 08/21/18 04/09/19 Rx tablet,extended release 24 hr olanzapine 5 mg tablet 5 mg PO DAILY #90 tab-cap 08/21/18 04/09/19 Rx simvastatin 40 mg tablet 40 mg PO HS #90 tab 08/21/18 04/09/19 Rx sodium di- and 0.5 tab PO BID #180 tab 08/21/18 04/09/19 Rx monophosphate-potassium phos monobasic 250 mg tablet ibuprofen 600 mg tablet 600 mg PO TID PRN #90 tab-cap 11/08/18 04/09/19 Rx ipratropium bromide 42 mcg (0.06 2 spray NS TID PRN #1 ml 11/08/18 04/09/19 Rx %) nasal spray clonazepam 0.5 mg tablet 0.25 mg PO DAILY #45 tab-cap 04/09/19 04/09/19 Rx Allergies Allergy/AdvReac Type Severity Reaction Status Date / Time lithium AdvReac Severe KIDNEY Verified 04/09/19 15:12 PROBLEM fluoxetine AdvReac Unknown Verified 04/09/19 15:12 Exam Narrative Exam Narrative: 113/69, 53, 21, 30.8; 100%. HEENT atraumatic; neck supple; lungs clear; heart irr/irr; abdomen soft and NT; extremities w/o edema; neuro lucid, mo9ves all 4s skin shows multiple ecchymoses about extremities, shoulders and hips Results Labs Result diagrams: 05/08/19 22:10 05/08/19 22:10 Labs: Laboratory Results - last 24 hr 05/08/19 05/08/19 05/08/19 22:10 22:10 22:10 WBC 14.10 H RBC 5.59 Hgb 16.5 Hct 48.4 MCV 86.6 MCH 29.5 MCHC 34.1 RDW 14.0 Plt Count 198 MPV 10.6 Immature Gran % See Differential Neutrophils % 86.0 Band Neutrophils % 5.0 Lymphocytes % 3.0 Monocytes % 5.0 Eosinophils % 0.0 Basophils % 0.0 Metamyelocytes % 1.0 Absolute Neutrophils 12.83 H Absolute Lymphocytes 0.42 L Absolute Monocytes 0.71 H Absolute Eosinophils 0.00 Absolute Basophils 0.00 Differential Comment Manual differential RBC Morphology Normal PT 13.0 H INR 1.3 H APTT 29.4 Sodium 145 Potassium 6.2 H* Chloride 104 Carbon Dioxide 14.2 L Anion Gap 26.8 H BUN 136 H* Creatinine 6.33 H* Estimated GFR/1.73 m2 8.55 Glucose 144 H Lactate Calcium 8.3 L Magnesium 2.8 H Ferritin Total Bilirubin 1.4 H AST 535 H ALT 159 H Alkaline Phosphatase 169 H Lactate Dehydrogenase Creatine Kinase > 16083 H Troponin I 0.20 H* Total Protein 7.3 Albumin 3.7 TSH 3.11 Urine Color Urine Clarity Urine pH Ur Specific Julian Urine Protein Urine Ketones Urine Blood Urine Nitrite Urine Bilirubin Urine Urobilinogen Ur Leukocyte Esterase Urine RBC Urine WBC Ur Epithelial Cells Urine Crystals Urine Bacteria Urine Mucus Ur Culture Indicated? Urine Glucose 05/08/19 05/08/19 05/08/19 22:10 22:10 22:21 WBC RBC Hgb Hct MCV MCH MCHC RDW Plt Count MPV Immature Gran % Neutrophils % Band Neutrophils % Lymphocytes % Monocytes % Eosinophils % Basophils % Metamyelocytes % Absolute Neutrophils Absolute Lymphocytes Absolute Monocytes Absolute Eosinophils Absolute Basophils Differential Comment RBC Morphology PT INR APTT Sodium Potassium Chloride Carbon Dioxide Anion Gap BUN Creatinine Estimated GFR/1.73 m2 Glucose Lactate 4.5 H* Calcium Magnesium Ferritin 563 H Total Bilirubin AST ALT Alkaline Phosphatase Lactate Dehydrogenase 1097 H Creatine Kinase Troponin I Total Protein Albumin TSH Urine Color Yellow Urine Clarity Cloudy Urine pH 7.0 Ur Specific Julian >= 1.030 H Urine Protein 100 H Urine Ketones Negative Urine Blood Large H Urine Nitrite Negative Urine Bilirubin Negative Urine Urobilinogen 0.2 Ur Leukocyte Esterase Large H Urine RBC Not Applicable Urine WBC >50 H Ur Epithelial Cells Not Applicable Urine Crystals Not Applicable Urine Bacteria Many Urine Mucus Not Applicable Ur Culture Indicated? Yes Urine Glucose Negative Last Vital Signs Temp 30.8 C L 05/08/19 22:31 Pulse 53 L 05/08/19 22:31 Resp 21 05/08/19 22:31 BP 113/69 05/08/19 22:31 Pulse Ox 100 05/08/19 22:31 COVID-19 Screening Medical treatment received for symptoms/illness related to travel?: All above questions unknown pt With AMS.
[2019-05-09] VITALS (95 sets, daily range): BP systolic 62–147; BP diastolic 25–103; PULSE 52–124; RESP 15–46; TEMP 31.5–37.7; O2SAT 91–100
--- NOTE | 2019-05-09 | DI.US_ITS ---
EXAM: US RENAL CLINICAL HISTORY: Sepsis, acute renal failure. TECHNIQUE: Jacques scale, color and spectral Doppler were used. COMPARISON: CT CHEST/ABD/PEL WO from 05/08/2019 FINDINGS: Renal size in cm: Right: 9.7 left: 10.3 Echogenicity: Normal. Hydronephrosis: No. Cyst or mass: 1.2 x 1 x 1.2 cm cyst on the right kidney. This is present on the CT scan of the chest , abdomen and pelvis dated 05/08/2019. Nephrolithiasis: No. Other findings: Bilateral renal cortical atrophy. Bladder:There is a Amaya catheter in place. There is soft tissue thickening in the left aspect of th e urinary bladder. This can be seen on the CT scan. This may represent thickened bladder wall versu s a mass. Ureteral jets: Right: Not visualized on this examination. Left: Not visualized on this examination. Prevoid vol:Amaya catheter in place. Postvoid vol:Amaya catheter in place. Prostate: 72 cc IMPRESSION: 1. No hydronephrosis. 2. Bilateral renal cortical atrophy. 3. Soft tissue thickening in the left aspect of the urinary bladder. This measures 2 x 3.5 x 1.6 cm. This may represent bladder wall thickening versus a mass. Follow-up as clinically appropriate. DATA REPOSITORY:
--- NOTE | 2019-05-09 | DI.US_ITS ---
APPROVED REPORT EXAM: Comprehensive 2D, Doppler, and color-flow Echocardiogram Patient Location: In-Patient Room/Bed: 220A Custodial Foreman: Love Woody RDCS (AE) Conclusion Technically difficult study Left ventricle appears normal in size with mild concentric left ventricular hypertrophy. Estimated e jection fraction is mildly reduced at approximately 50%. Segmental wall motion could not be accurate ly assessed There is no chamber enlargement The aortic valve is mildly sclerotic and trileaflet without stenosis or regurgitation There is trace mitral and tricuspid regurgitation Left pleural effusion noted Wall motion Left Ventricle The left ventricle is normal size. Left ventricular systolic function is mildly decreased. Mild latoya ntric left ventricular hypertrophy. Regional wall motion is not well visualized but grossly normal. T echnically limited subcostal view due to body habitus. Unable to visualize. LVEF is 50%. Right Ventricle The right ventricle is normal size. The right ventricular systolic function is normal. Atria The left atrium size is normal. The right atrium size is normal. Not able to visualize Aortic Valve The Aortic valve is mildly sclerotic. Aortic valve is trileaflet. There is no aortic valvular stenosi s. No aortic regurgitation is present. Mitral Valve There is mitral annular calcification. No evidence of mitral valve stenosis. Trace mitral regurgitati on. Tricuspid Valve The tricuspid valve is normal in structure. There is no tricuspid valve stenosis. Trace tricuspid reg urgitation. Pulmonic Valve Pulmonic valve is not well visualized. There is no pulmonic valvular stenosis. There is no pulmonic v alvular regurgitation. Great Vessels The aortic root is normal in size. The ascending aorta is normal in size. Aortic arch is not well vis ualized. The IVC was not visualized. Pericardium Technically limited view due to body habitus. Moderate left pleural effusion. 2D Dimensions IVSD d PLAX 1.21 cm M: 0.6-1.2 LV Vol A4C d MOD 95.2 mL LVPW d PLAX 1.21 cm M: 0.6 - 1.2 LA vol/ BSA A4C s A-L 14.3 mL/m2 LVID d PLAX 3.40 cm M: 4.2 - 5.8 LA Area A4C s MOD 11.26 cm2 LVDs 2.90 cm M: 2.5 - 4.0 LV EF A4C MOD 32.8 % Ao Root d 3.42 cm M: 3.1 - 3.7 RA Area A4C 11.40 cm2 RA Vol/ BSA A4C s A-L 15.7 mL/m2 Ao Asc Diam d 3.35 cm M: 2.6 - 3.4 LV EF Teichholz 30.8 % LV Volume Index 56.85 mL/m2 M: 34 - 74 FS 14.00 % LV Diastology MV E' lateral 0.065 (>0.1 m/s) MV E Vmax 0.76 (0.4-1.3 m/s) LV E/e LAT 11.60 (<14) MV E/E' lateral 11.63 Aortic Valve LVOT Area 2.67 cm2 AoV Area Vmax 2.36 cm2 LVOT Vmax 0.69 m/s AoV Area/ BSA (Vmax) 1.41 cm2/m2 LVOT Mean Bhavik. 0.48 m/s CHAYA Mean Bhavik. 2.16 cm2 LVOT Peak Grad 1.9 mmHg CHAYA Mean Bhavik. Index 1.29 cm2/m2 LVOT Mean Grad 1.0 mmHg LVOT VTI 0.083 m LVOT Diam s 1.80 cm (M/F) 1.5-2.5 AoV Vmax 0.78 (0.5-1.3 m/s) Velocity Ratio 0.88 AoV Mean Bhavik. 0.60 m/s AoV Peak Grad 2.4 mmHg LVOT SV 22.15 mL AoV Mean Grad 1.5 (<5 mmHg) AoV VTI 0.080 (0.18-0.25 m) AoV Area VTI 2.78 (2.5-4.5 cm2) AoV Area/ BSA (VTI) 1.66 cm/m2 Mitral Valve MV DT 120 (160-240 msec) MV PHT 35 msec MV Area PHT 6.30 cm2 Pulmonary Valve PV Vmax 0.70 (0.5-1.5 m/s) RVOT Peak Gr. 1.83 mmHg PV Peak Grad 2.0 mmHg RVOT Mean Gr. 0.85 mmHg PV Mean Grad 1.1 mmHg RVOT VTI 0.084 m PV VTI 0.081 m RVOT Vmax 0.68 m/s Tricuspid Valve TR Peak Grad 14.3 mmHg TR Vmax 1.90 m/s RA Pressure 3.00 mmHg RVSP (TR) 17.4 mmHg
[2019-05-09] MEDS: Insulin REGULAR-Human 100 UNITS/ML UNIT 10 UNITS IV (00:40)
[2019-05-09] MEDS: Dextrose 50%-Water 25 GM/50 ML SYR IVP (00:40)
--- NOTE | 2019-05-09 01:35 | NUR.NOTE ---
Nursing Note: Report called to Rubina @ ICU. Pt transferred with RN and tech on monitor.
[2019-05-09] MEDS: Acetaminophen 325 MG TAB 650 MG PO (02:46)
[2019-05-09] MEDS: Normal Saline 1,000 ML 150 ML IV (05:56)
[2019-05-09 06:59] LABS: Calcium 7.5 mg/dL (8.5-10.1); Chloride 110 mmol/L (98-107); Estimated GFR 9.34 (mL/min/1.73m2); Glucose 98 mg/dL (74-106); Potassium 4.4 mmol/L (3.5-5.1); Sodium 147 mmol/L (136-145)
[2019-05-09 07:00] LABS: ALT 134 U/L (16-63); AST 418 U/L (15-37)
[2019-05-09 07:13] LABS: BUN 131 mg/dL (7-18)
[2019-05-09 07:14] LABS: CREATININE 5.86 mg/dL (0.70-1.30)
[2019-05-09 07:15] LABS: Troponin I 0.32 ng/Ml (<0.06)
--- NOTE | 2019-05-09 09:37 | PGE_ITS ---
Date of Service Date of service: 05/09/19 Time of Service: 09:38 Assessment and Plan Assessment and plan (1) Sepsis: Status: Acute Assessment and plan: Despite adequate volume resuscitation he remains hypotensive. He is can require vasopressors including norepinephrine. Source appears to be urinary tract. He has a history of BPH and does self catheterizations at home. Preliminary blood culture showing gram-positive rods in anaerobic bottle. Urine culture results pending at this time. He was treated with ceftriaxone last night and I will change this to meropenem. Qualifiers: Acute renal failure type: with acute tubular necrosis Sepsis acute organ dysfunction status: with acute organ dysfunction Sepsis type: sepsis due to unspecified organism Severe sepsis acute organ dysfunction type: acute renal failure Severe sepsis shock status: with septic shock Qualified Code(s): A41.9 - Sepsis, unspecified organism; R65.21 - Severe sepsis with septic shock; N17.0 - Acute kidney failure with tubular necrosis (2) Non-ST elevation myocardial infarction (NSTEMI): Status: Acute Assessment and plan: He appears to have sustained a non-ST elevation myocardial infarction probably due to demand ischemia from sepsis. We will continue to trend his troponin levels. Check the results of his echocardiogram from this morning. We will start heparin systemically for the next 24 hours and treat him with aspirin. He is not a candidate for any beta-blockers or MOSES inhibitors at present time. (3) Acute UTI: Status: Acute Assessment and plan: As above for sepsis (4) Acute renal failure due to rhabdomyolysis: Status: Acute Assessment and plan: He presented with acute renal failure and hyperkalemia with elevated CK greater than 10,000. We will continue to hydrate him however given his prior history of coronary artery disease and elevated proBNP will need to back off the rate of his IV fluids. I will monitor him with serial [id number] ultrasound studies of his lungs and heart and monitor his urine output as well as his labs. (5) Rhabdomyolysis: Status: Acute Assessment and plan: Hydration as above. Consider changing to D5 W with sodium bicarbonate Qualifiers: Rhabdomyolysis type: non-traumatic Qualified Code(s): M62.82 - Rhabdomyolysis (6) Hypothermia: Status: Acute Assessment and plan: Hypothermia secondary to sepsis and being down on the floor for 3-day. Currently on a bear hugger Qualifiers: Encounter type: initial encounter Qualified Code(s): T68.XXXA - Hypothermia, initial encounter (7) Lower GI bleeding: Status: Acute Assessment and plan: Initially I was going treated with a heparin drip for non-ST elevation myocardial infarction. However when he developed GI bleeding this afternoon we discontinued his aspirin and heparin. He is being treated with IV Protonix. I suspect that he is having ischemic bowel from sepsis possibly causing a bowel infarct. (8) Need for comfort care: Status: Acute Assessment and plan: Given his multiple comorbidities as listed above his odds of survival are next to nil. Family is in agreement to keep Katharina comfortable and to not prolong his suffering. As such I will order prn pain and anxiolytic medications and dc his norepinephrine drip and iv fluids and dc all labs or tests or telemetry. Subjective Subjective Interval history since last seen: 78-year-old male with a history of COPD, AAA status post endovascular graft, coronary artery disease, bipolar disorder, obstructive sleep apnea who lives at home alone and was found down in his home by a meal delivery provider. Patient had been down on the floor for an unspecified time. But it is believed he had been down for at least 3 days. Unclear as to how he ended up on the floor as to whether or not there was a syncopal event or he just became very weak and fell. Nevertheless he was brought in the emergency department where he was found to be in acute kidney injury with a creatinine of 6.3 and a BUN of 136 and found to have rhabdomyolysis with a CK level of greater than 10,000. furthermore he was found to have evidence of urine tract infection with an abnormal urinalysis with a large amount leukocyte esterase greater than 50 white cells per high-powered field and many bacteria. CT images were obtained of the chest abdomen pelvis as well as the cervical spine and the head. CT of the abdomen pelvis showed no acute abdominal or pelvic process he has an aortobiiliac endograft stent within a 5.5 cm abdominal aortic aneurysm. He has bilateral renal cortical atrophy and a cyst on the right kidney. He had no acute thoracic abnormalities. CT of the head and spine showed no acute intracranial process and no acute fracture or subluxation cervical spine. After obtaining blood and urine cultures he was given ceftriaxone and he was initially resuscitated with 2 L of lactated Ringer's and then switched to normal saline at 400 mL an hour. His initial troponin was found to be elevated at 0.2 however he had no acute ischemic changes on his EKG. LFTs were elevated with an AST of 500 and ALT of 150. He was admitted to the intensive care area by Dr. Arango last night for treatment of rhabdomyolysis and acute kidney injury with hypothermia and hyperkalemia and UTI. Since that time the patient has had problems with hypotension and tachycardia and it is believed that he is in sepsis with shock. Throughout the morning he received a couple more liters of IV fluids which transiently brought his blood pressure up when his blood pressure dropped again he required vasopressors including norepinephrine. His antibiotic coverage was broadened to include meropenem. Blood cultures have come back positive for gram-positive rods. He has since developed a GI bleed and his troponins have continued to rise up to 0.59. Renal ultrasound was performed and he was found no evidence for hydronephrosis he has a large prostate and bladder wall thickening and no stones. Abdominal x-ray demonstrated nonspecific bowel dilatation of the small bowel as well as gas in the colon. Echocardiogram report is pending at this t [facility]. However I did a [id number] ultrasound and he appears to have at least moderate LV dysfunction and a small pericardial effusion without evidence for tamponade. I discussed his case with his family including his daughter Geri and son Ju who presented to the hospital to see their father. They wish for their father to be kept comfortable. As the patient has had oliguric renal failure throughout the day despite IV fluids and vasopressors and now is having GI bleeding along with a non-STEMI infarct and rhabdomyolysis his prognosis is terminal. Patient will be made comfort care. Patient's condition was conveyed to his primary care provider Dr. Yvan Bhatia who had been contacted by the patient's daughter. Exam Narrative Exam Narrative: Elderly male who is in obvious discomfort secondary to his abdominal pain. At times he is lethargic particularly when his blood pr essure drops into the 60s and 70s. With fluid boluses and adjustment of his norepinephrine he becomes more alert with his blood pressure rising into the 90s. HEENT is remarkable for dry mucous membranes. Neck veins are flat. Lungs are clear to auscultation anteriorly however at the posterior bases there are rales. Heart is tachycardic without appreciable murmur or rub. Abdomen is distended and exquisitely tender with guarding and rebound tenderness. He has hypoactive bowel sounds. Extremities without edema however there is peripheral cyanosis with mottling of the skin of the lower legs Neurologically there is no facial asymmetry no dysarthric speech and no focal motor deficits however his mental status waxes and wanes and is difficult to discern his orientation except that he seems to be aware of people present and will mouth words at times but is unable to carry on a coherent conversation. Objective Objective Clinical Data: Abnormal lab results 05/08/19 05/08/19 05/08/19 Range/Units 22:10 22:10 22:10 WBC 14.10 H (4.4-10.8) k/cumm Absolute Neutrophils 12.83 H (1.2-6.7) k/cumm Absolute Lymphocytes 0.42 L (1.2-3.4) k/cumm Absolute Monocytes 0.71 H (0.11-0.7) k/cumm PT 13.0 H (9.3-11.0) sec INR 1.3 H (0.9-1.1) Sodium (136-145) mmol/L Potassium 6.2 H* (3.5-5.1) mmol/L Chloride (98-107) mmol/L Carbon Dioxide 14.2 L (21.0-32.0) mmol/L Anion Gap 26.8 H (3-11) mmol/L BUN 136 H* (7-18) mg/dL Creatinine 6.33 H* (0.70-1.30) mg/dL Glucose 144 H (74-106) mg/dL Lactate (0.6-1.4) mmol/L Calcium 8.3 L (8.5-10.1) mg/dL Magnesium 2.8 H (1.8-2.4) mg/dL Ferritin (26-388) ng/mL Total Bilirubin 1.4 H (0.2-1.0) mg/dL AST 535 H (15-37) U/L ALT 159 H (16-63) U/L Alkaline Phosphatase 169 H (46-116) U/L Lactate Dehydrogenase (85-227) U/L Creatine Kinase > 72052 H (39-308) U/L Troponin I 0.20 H* (<0.06) ng/Ml Ur Specific [place] (1.005-1.025) Urine Protein (Negative) mg/dL Urine Blood (Negative) Ur Leukocyte Esterase (Negative) Urine WBC (0-5) HPF 05/08/19 05/08/19 05/08/19 Range/Units 22:10 22:10 22:21 WBC (4.4-10.8) k/cumm Absolute Neutrophils (1.2-6.7) k/cumm Absolute Lymphocytes (1.2-3.4) k/cumm Absolute Monocytes (0.11-0.7) k/cumm PT (9.3-11.0) sec INR (0.9-1.1) Sodium (136-145) mmol/L Potassium (3.5-5.1) mmol/L Chloride (98-107) mmol/L Carbon Dioxide (21.0-32.0) mmol/L Anion Gap (3-11) mmol/L BUN (7-18) mg/dL Creatinine (0.70-1.30) mg/dL Glucose (74-106) mg/dL Lactate 4.5 H* (0.6-1.4) mmol/L Calcium (8.5-10.1) mg/dL Magnesium (1.8-2.4) mg/dL Ferritin 563 H (26-388) ng/mL Total Bilirubin (0.2-1.0) mg/dL AST (15-37) U/L ALT (16-63) U/L Alkaline Phosphatase (46-116) U/L Lactate Dehydrogenase 1097 H (85-227) U/L Creatine Kinase (39-308) U/L Troponin I (<0.06) ng/Ml Ur Specific [place] >= 1.030 H (1.005-1.025) Urine Protein 100 H (Negative) mg/dL Urine Blood Large H (Negative) Ur Leukocyte Esterase Large H (Negative) Urine WBC >50 H (0-5) HPF 05/09/19 05/09/19 05/09/19 Range/Units 06:25 06:25 06:25 WBC (4.4-10.8) k/cumm Absolute Neutrophils (1.2-6.7) k/cumm Absolute Lymphocytes (1.2-3.4) k/cumm Absolute Monocytes (0.11-0.7) k/cumm PT (9.3-11.0) sec INR (0.9-1.1) Sodium 147 H (136-145) mmol/L Potassium (3.5-5.1) mmol/L Chloride 110 H (98-107) mmol/L Carbon Dioxide 17.0 L (21.0-32.0) mmol/L Anion Gap 20.0 H (3-11) mmol/L BUN 131 H* (7-18) mg/dL Creatinine 5.86 H* (0.70-1.30) mg/dL Glucose (74-106) mg/dL Lactate (0.6-1.4) mmol/L Calcium 7.5 L (8.5-10.1) mg/dL Magnesium (1.8-2.4) mg/dL Ferritin (26-388) ng/mL Total Bilirubin (0.2-1.0) mg/dL AST 418 H (15-37) U/L ALT 134 H (16-63) U/L Alkaline Phosphatase (46-116) U/L Lactate Dehydrogenase (85-227) U/L Creatine Kinase (39-308) U/L Troponin I 0.32 H* (<0.06) ng/Ml Ur Specific [place] (1.005-1.025) Urine Protein (Negative) mg/dL Urine Blood (Negative) Ur Leukocyte Esterase (Negative) Urine WBC (0-5) HPF Vital Signs Temperature 35.7 C L 05/09/19 08:57 Temperature Source Temporal Artery Scan 05/09/19 08:57 Pulse 106 H 05/09/19 08:44 Pulse 106 H 05/09/19 08:44 Respiratory Rate 39 H 05/09/19 08:44 Respiratory Effort 05/09/19 02:00 Respiratory Depth Shallow 05/09/19 02:00 Respiratory Pattern Tachypnea 05/09/19 02:00 Blood Pressure 93/57 L 05/09/19 08:44 Blood Pressure Mean 64 05/09/19 08:44 Blood Pressure Position Supine 05/09/19 02:00 Pulse Oximetry 98 05/09/19 08:12 Oxygen Delivery Method Nasal Cannula 05/09/19 08:12 Oxygen Flow Rate 1 05/09/19 08:12 Pain Level 8 05/09/19 02:46 Intake & Output 05/08/19 05/08/19 05/09/19 11:59 23:59 11:59 Intake Total 1999 Output Total 600 / 600 Balance 1999 1450 / 1450 Weight 61.235 kg 61.235 kg Intake: IV 1999 Output: Urine 600 / 600 Other: Urine Color Yellow Yellow Urine Appearance Cloudy Cloudy Purulent Sediment Comment denies history of chronic problems, Medical record indicated BPH. Stool Size Smear Stool Characteristics Soft Laboratory Results WBC 14.10 k/cumm (4.4-10.8) H 05/08/19 22:10 RBC 5.59 m/cumm (4.50-6.00) 05/08/19 22:10 Hgb 16.5 g/dL (13.5-17.5) 05/08/19 22:10 Hct 48.4 % (40.0-50.0) 05/08/19 22:10 MCV 86.6 fL (80-95) 05/08/19 22:10 MCH 29.5 pg (27.0-33.0) 05/08/19 22:10 MCHC 34.1 g/dL (32.0-36.0) 05/08/19 22:10 RDW 14.0 % (11.8-14.1) 05/08/19 22:10 Plt Count 198 x1000/uL (130-400) 05/08/19 22:10 MPV 10.6 fL (8.0-11.0) 05/08/19 22:10 Immature Gran % See Differential 05/08/19 22:10 Neutrophils % 86.0 05/08/19 22:10 Band Neutrophils % 5.0 % 05/08/19 22:10 Lymphocytes % 3.0 05/08/19 22:10 Monocytes % 5.0 05/08/19 22:10 Eosinophils % 0.0 05/08/19 22:10 Basophils % 0.0 05/08/19 22:10 Metamyelocytes % 1.0 % 05/08/19 22:10 Absolute Neutrophils 12.83 k/cumm (1.2-6.7) H 05/08/19 22:10 Absolute Lymphocytes 0.42 k/cumm (1.2-3.4) L 05/08/19 22:10 Absolute Monocytes 0.71 k/cumm (0.11-0.7) H 05/08/19 22:10 Absolute Eosinophils 0.00 k/cumm (0.0-0.7) 05/08/19 22:10 Absolute Basophils 0.00 k/cumm (0.0-0.2) 05/08/19 22:10 Differential Comment Manual differential 05/08/19 22:10 RBC Morphology Normal 05/08/19 22:10 PT 13.0 sec (9.3-11.0) H 05/08/19 22:10 INR 1.3 (0.9-1.1) H 05/08/19 22:10 APTT 29.4 sec (21.0-31.4) 05/08/19 22:10 Sodium 147 mmol/L (136-145) H 05/09/19 06:25 Potassium 4.4 mmol/L (3.5-5.1) D 05/09/19 06:25 Chloride 110 mmol/L (98-107) H 05/09/19 06:25 Carbon Dioxide 17.0 mmol/L (21.0-32.0) L 05/09/19 06:25 Anion Gap 20.0 mmol/L (3-11) H 05/09/19 06:25 BUN 131 mg/dL (7-18) H* 05/09/19 06:25 Creatinine 5.86 mg/dL (0.70-1.30) H* 05/09/19 06:25 Estimated GFR/1.73 m2 9.34 (mL/min/1.73m2) 05/09/19 06:25 Glucose 98 mg/dL (74-106) 05/09/19 06:25 Lactate 4.5 mmol/L (0.6-1.4) H* 05/08/19 22:10 Calcium 7.5 mg/dL (8.5-10.1) L 05/09/19 06:25 Magnesium 2.8 mg/dL (1.8-2.4) H 05/08/19 22:10 Ferritin 563 ng/mL (26-388) H 05/08/19 22:10 Total Bilirubin 1.4 mg/dL (0.2-1.0) H 05/08/19 22:10 AST 418 U/L (15-37) H 05/09/19 06:25 ALT 134 U/L (16-63) H 03/26/20 06:25 Alkaline Phosphatase 169 U/L (46-116) H 05/08/19 22:10 Lactate Dehydrogenase 1097 U/L (85-227) H 05/08/19 22:10 Creatine Kinase > 71651 U/L (39-308) H 05/08/19 22:10 Troponin I 0.32 ng/Ml (<0.06) H* 05/09/19 06:25 Total Protein 7.3 g/dL (6.4-8.2) 05/08/19 22:10 Albumin 3.7 g/dL (3.4-5.0) 05/08/19 22:10 TSH 3.11 uIU/mL (0.36-3.74) 05/08/19 22:10 Urine Color Yellow (Yellow) 05/08/19 22:21 Urine Clarity Cloudy (Clear) 05/08/19 22:21 Urine pH 7.0 (5-8) 05/08/19 22:21 Ur Specific [place] >= 1.030 (1.005-1.025) H 05/08/19 22:21 Urine Protein 100 mg/dL (Negative) H 05/08/19 22:21 Urine Ketones Negative mg/dL (Negative) 05/08/19 22:21 Urine Blood Large (Negative) H 05/08/19 22:21 Urine Nitrite Negative (Negative) 05/08/19 22:21 Urine Bilirubin Negative (Negative) 05/08/19 22:21 Urine Urobilinogen 0.2 EU/dL (Up TO 0.2) 05/08/19 22:21 Ur Leukocyte Esterase Large (Negative) H 05/08/19 22:21 Urine RBC Not Applicable 05/08/19 22:21 Urine WBC >50 HPF (0-5) H 05/08/19 22:21 Ur Epithelial Cells Not Applicable 05/08/19 22:21 Urine Crystals Not Applicable 05/08/19 22:21 Urine Bacteria Many HPF (Negative) 05/08/19 22:21 Urine Mucus Not Applicable 05/08/19 22:21 Ur Culture Indicated? Yes 05/08/19 22:21 Urine Glucose Negative mg/dL (Negative) 05/08/19 22:21 Coronavirus (PCR) Cancelled 05/08/19 23:15
--- NOTE | 2019-05-09 10:02 | INITIAL_ITS ---
- If Service Date Differs Date of service: 05/09/19 Time of Service: 10:02 Care Management Initial Assess REASON FOR HOSPITALIZATION:: Hypotherimia, RUMA, rhabdomyolysis, suspected sepsis PAST MEDICAL HISTORY/PAST SURGICAL HISTORY:: Abdominal aortic aneurysm (AAA). Benign prostatic disease. Chronic obstructive lung disease. Chronic obstructive lung disease (Chronic). Chronic renal failure, stage 3 (moderate). Chronic renal failure, stage 3 (moderate) (Chronic 06/12/15). Claustrophobia. Claustrophobia (Chronic 11/29/16). Coronary artery abnormality. Coronary atherosclerosis of [place] coronary vessel (Chronic). angina-1995 LAD angioplasty; Stent in 2004 x3. Depressed bipolar I disorder. Depressed bipolar I disorder (Chronic). Essential hypertension (Chronic 02/18/13). Hearing loss. Hearing loss (Chronic). A.D. HTN (hypertension). Hyperlipidemia. Hyperlipidemia (Chronic). Hypotonic bladder. Hypotonic bladder (Chronic). Neck pain (Inactive). Obstructive sleep apnea syndrome (Chronic). JONO (obstructive sleep apnea). Parkinson's disease. Parkinson's disease (Chronic). mild. Raised prostate specific antigen. Spinal stenosis of lumbar region. Spinal stenosis of lumbar region without neurogenic claudication (Chronic ). Vasomotor rhinitis. Vasomotor rhinitis (Chronic 03/27/15). Vitamin D deficiency. Vitamin D deficiency (Chronic 09/15/16) PREVIOUS FUNCTIONAL STATUS/SOCIAL/FAMILY SUPPORTS:: Per Katharina's daughter Geri he lives at home alone he spouse passes a few years ago at the [facility]. Katharina lives in his own home in [place], [place]. he does have a history of Bipolar and takes medications for that which he is able to take on his own. She states he uses [facility] for transportation to and from his appointments and has a Urologist at [facility]. He does straight cath once a day per his daughter. CURRENT FUNCTIONAL STATUS:: Katharina is having an echo during CM visit, he is sleepy and not engaged at this time. contacted by daughter Geri who is here from [place]. She believes Katharina was down for at least three days and has not taken his medicatons for his bipolar. Daughter states he becomes aggitated if he does not have those medications. Currently the children would like updates over the phone they are not able to come in at this time due to restriction of visitors. Daughters phone number is [phone] his son Katharina is also available at the same number. ADVANCE DIRECTIVES:: On file - from 2013 Has patient been provided with information about the portal?: No Did the patient sign up for the portal?: No (Already enrolled) CODE STATUS:: Full Code INSURANCE COVERAGE / FINANCIAL ISSUES:: Medicare, BCBS CURRENT HOME/COMMUNITY SERVICES/EQUIPMENT:: Meals on wheels and moderate needs choices for care PRIMARY CARE PHYSICIAN:: POTENTIAL DISCHARGE NEEDS:: Pending disposition PATIENT/FAMILY EDUCATION NEEDS:: Discharged education, limitations and follow up plan of care including ask me three. ANTICIPATED BARRIERS TO DISCHARGE:: Disposition to be determined pending recovery from illness he may need placement at SNF. TRANSPORTATION:: Pending disposition. PLAN:: Katharina remains in the ICU, he is having a echo today, he is being treated for presumed sepsis and his condition remains guarded. CM will keep the family up to date for discharge planning and acute care decisions.
[2019-05-09 10:27] LABS: HCT 41.5 % (40.0-50.0); HGB 14.5 g/dL (13.5-17.5); Mean Corp. HGB Concentration 34.9 g/dL (32.0-36.0); Mean Corpuscular Hemoglobin 29.8 pg (27.0-33.0); Mean Corpuscular Volume 85.2 fL (80-95); Mean Platelet Volume 10.5 fL (8.0-11.0); Platelet Count 152 x1000/uL (130-400); RBC 4.87 m/cumm (4.50-6.00); RBC Distribution Width 13.7 % (11.8-14.1); White Blood Cell Count 7.78 k/cumm (4.4-10.8)
[2019-05-09 10:53] LABS: NT-proBNP 16339 pg/mL (<300)
[2019-05-09 10:56] LABS: Troponin I 0.47 ng/Ml (<0.06)
[2019-05-09] MEDS: Normal Saline 1,000 ML 250 ML IV (11:01)
--- NOTE | 2019-05-09 11:02 | PHA.ADMREV ---
Pharmacy Clinical Review - Admission Clinical Review (Last Reviewed 05/09/19 @ 00:15 by Roberto Love MD) Hypothermia (Acute) Acute renal failure due to rhabdomyolysis (Acute) Electrolyte abnormality (Acute) Acute UTI (Acute) Rhabdomyolysis (Acute) lithium Adverse Reaction (Severe, Verified 04/09/19 15:12) KIDNEY PROBLEM fluoxetine Adverse Reaction (Unknown, Verified 04/09/19 15:12) Height 5 ft 5 in Weight 61.235 kg HYPOTHERMIA, ACUTE KIDNEY INJURY, RHABDO-WAS FOUND DOWN BY CAREGIVER 2+ DAYS - Renal Dosing Renal Dosing: BUN 131 mg/dL (7-18) H* 05/09/19 06:25 Creatinine 5.86 mg/dL (0.70-1.30) H* 05/09/19 06:25 Medications needing adjustments: Reviewed (CrC~8.7ml/min (improved slightly overnight)-no med adjustments needed, H&P states chronic stage-3 renal failure) - Anticoagulation Anticoagulation: Hgb 14.5 g/dL (13.5-17.5) 05/09/19 10:10 Hct 41.5 % (40.0-50.0) 05/09/19 10:10 Plt Count 152 x1000/uL (130-400) 05/09/19 10:10 INR 1.3 (0.9-1.1) H 05/08/19 22:10 Creatinine 5.86 mg/dL (0.70-1.30) H* 05/09/19 06:25 DVT Prohphylaxis: Reviewed (NONE at this time, s/p Fall, MD has not seen patient yet today, admitting MD did not enter, INR 1.3) Therapeutic Anticoagulation: N/A - Opiate Usage Evaluate Pain Scale/Pains Meds: Reviewed (Oxy IR, not using, no bowel meds) Scheduled Bowel Reg ordered if on Opiates?: No (Patient not using Oxy IR) - Relevant Labs Sodium 147 mmol/L (136-145) H 05/09/19 06:25 Potassium 4.4 mmol/L (3.5-5.1) D 05/09/19 06:25 Chloride 110 mmol/L (98-107) H 05/09/19 06:25 Magnesium 2.8 mg/dL (1.8-2.4) H 05/08/19 22:10 Electrolytes, C-Reactive P, ESR: Reviewed (Hyperkalemia treated w/Kayexylate-now normal, Creatine Kinase>38056, LFT's elevated, Probnp elevated 16,339, Lactate elevated 4.5) - Antimicrobial Stewardship Antibiotic appropriateness: Reviewed (Ceftriaxone 1gram for ?UTI) Surgical Abx d/c within 24 hr: N/A Culture review/Resistance: Reviewed (Blood and urine pending) - DM Control DM Control: Glucose 98 mg/dL (74-106) 05/09/19 06:25 Insulin Dosing: N/A - Heart Failure/WV Heart Failure/WV: Troponin I 0.47 ng/Ml (<0.06) H* 05/09/19 10:10 NT-Pro-B Natriuret Pep 69724 pg/mL (<300) H 05/09/19 10:10 EF%, MOSES's, B-Blockers, Diuretics: Reviewed (Troponin positive) - BP Control BP Control: Blood Pressure [Left Arm] 109/71 Blood Pressure 93/57 Blood Pressure 95/45 Blood Pressure 113/64 Blood Pressure 106/69 Blood Pressure 112/60 Blood Pressure 101/89 Blood Pressure 110/39 Blood Pressure 95/73 Blood Pressure 83/60 Blood Pressure 115/25 Blood Pressure 115/69 Blood Pressure 119/82 Blood Pressure 114/81 Blood Pressure 111/78 Blood Pressure 108/78 Blood Pressure 108/64 Blood Pressure 109/71 Blood Pressure 108/64 Blood Pressure 147/88 Blood Pressure 85/64 Blood Pressure 127/103 Blood Pressure 104/53 Blood Pressure 91/56 Blood Pressure 95/60 Blood Pressure 126/92 Blood Pressure 135/92 If elevated: N/A - QTc Review If Elevated: Reviewed (qtc 485) - IV to PO Switch IV Medications: Reviewed (IV to oral Anbx) - Home Meds Home Med List reviewed: Reviewed (no contraindications) Relevent Home Meds Not ordered & why?: None ordered at this time, MD has not seen patient yet this morning, Pt is Bipolar and MD will restart some of his meds - Current meds Current Medication Order Review: Reviewed - Comments Comments/Follow Ups: Check on appropriateness of DVT prophylaxis, Micro results, Anbx therapy, addition of home medications Probnp, CK, Lactate levels
--- NOTE | 2019-05-09 12:29 | W.NUTCONSULT ---
Date of service: 05/09/19 Time of Service: 12:30 Nutritional Consult ASSESSMENT: 78 year old male admitted with hypothermia, RUMA, Rhabdomyolysis from prolonged immobilization, possible sepsis. PMH: CKD, CAD, HTN, bipoloar, hyperlipidemia, parkinson's disease, hx of vit D deficiency. BMI on low end of normal, with 37 lbs weight loss in last 90 days (-25% wieght loss). two years ago, lives alone with meal delivery service. Following regular meal plan with poor intake. Mr. Morgan presents with malnutrition in context of chronic illness in view of severe weight decline in last 90 days. Will provide ensure shakes BID daily to encourage intake to meet nutrient and fluid needs by mouth. remains full code. Intervention: regular diet with ensure BID Monitoring: labs, weight, po intake will follow up daily and make recommendations as warranted. Time Spent in Nutritional Counseling and Treatment: 0 time spent face to face
[2019-05-09 13:20] LABS: Procalcitonin 5.2 ng/mL
[2019-05-09 14:13] LABS: HCO3 (Venous) 10 mmol/L (22-28); O2 Sat (Venous) 91 % (70-80); TCO2 (Venous) 10 mmol/L (22-29); pCO2 (Venous) 26 mm/Hg (34-47); pH (Venous) 7.21 (7.35-7.45); pO2 (Venous) 71 mm/Hg (28-44)
[2019-05-09] MEDS: Normal Saline Flush 10 ML SYR IVP (14:30)
[2019-05-09 14:41] LABS: Anion Gap 21.5 mmol/L (3-11); CO2 12.5 mmol/L (21.0-32.0); Calcium 7.1 mg/dL (8.5-10.1); Chloride 114 mmol/L (98-107); Potassium 4.9 mmol/L (3.5-5.1); Sodium 148 mmol/L (136-145)
[2019-05-09] MEDS: Pantoprazole 40 MG VIAL IVP (14:50)
[2019-05-09 14:54] LABS: BUN 138 mg/dL (7-18)
[2019-05-09 14:55] LABS: HCT 39.3 % (40.0-50.0); HGB 13.6 g/dL (13.5-17.5)
[2019-05-09 14:55] LABS: CREATININE 6.11 mg/dL (0.70-1.30); Glucose 69 mg/dL (74-106)
[2019-05-09 14:56] LABS: Troponin I 0.59 ng/Ml (<0.06)
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
--- NOTE | 2019-05-09 16:18 | DI.VRAD_ITS ---
PROCEDURE INFORMATION: Exam: US Retroperitoneal Limited, Kidneys Exam date and time: 05/09/2019 3:25 PM Age: 78 years old Clinical indication: Abnormal findings; Abnormal lab test; Other: Sepsis, acute renal failure; Patient HX: Best possible images due to patient condition TECHNIQUE: Imaging protocol: Real-time ultrasound of the retroperitoneum with image documentation. Examination was focused on the kidneys. COMPARISON: CT CHEST/ABD/PEL WO 05/08/2019 11:10 PM FINDINGS: Right kidney: No hydronephrosis. Left kidney: No hydronephrosis. Bladder, prostate: Enlarged prostate. Left bladder wall thickening versus mass, correlate with prior CT. IMPRESSION: No hydronephrosis. Dictated and Authenticated by: Moose Alfredo MD. Ordering:.[facility] Vanita Hung MD
--- NOTE | 2019-05-09 16:38 | DI.VRAD_ITS ---
PROCEDURE INFORMATION: Exam: XR Abdomen, 2 Views Exam date and time: 05/09/2019 4:10 PM Age: 78 years old Clinical indication: Other: Abdominal pain TECHNIQUE: Imaging protocol: XR of the abdomen. Views: 2 Views. COMPARISON: US RENAL 05/09/2019 3:05 PM FINDINGS: Gastrointestinal tract: Small bowel dilatation. Gas in the colon. Intraperitoneal space: Aortoiliac stent. Vasculature: Multiple metallic densities project over the abdomen and pelvis. Bones/joints: Unremarkable for age. IMPRESSION: Nonspecific small bowel dilatation. Dictated and Authenticated by: Moose Alfredo MD. Ordering:.[facility] Vanita Hung MD
--- NOTE | 2019-05-09 20:28 | PDOC.CMPRO ---
Care Management Progress Note LUIZA coordinated staff discussion central to Katharina's being permitted to have family visitors due to end of life care. LUIZA spoke with [employer], Nursing [employer] Operator, Family and Entry Sentry. LUIZA discussed with M/S staff and escorted family in to say goodbye to their father/grandfather. Katharina passed shortly thereafter.
== END 2019-05-09 20:20 | disposition expired | DRG 871 ==
LOC: ER 05-09 00:37 → ICU 05-09 02:01
PROVIDERS: Internal Medicine; Admitting Provider General Practice; Emergency Provider Emergency Medicine; PCP Family Medicine; Visit Provider General Practice
DX: A41.9 Sepsis, unspecified organism (principal); N17.0 Acute kidney failure with tubular necrosis; R65.21 Severe sepsis with septic shock; I21.A1 Myocardial infarction type 2; N39.0 Urinary tract infection, site not specified; M62.82 Rhabdomyolysis; K92.2 Gastrointestinal hemorrhage, unspecified; T68.XXXA Hypothermia, initial encounter; E87.5 Hyperkalemia; R82.81 Pyuria; W19.XXXA Unspecified fall, initial encounter; J44.9 Chronic obstructive pulmonary disease, unspecified; N18.3 Chronic kidney disease, stage 3 (moderate); I25.10 Atherosclerotic heart disease of native coronary artery without angina pectoris; F31.9 Bipolar disorder, unspecified; I12.9 Hypertensive chronic kidney disease with stage 1 through stage 4 chronic kidney disease, or unspecified chronic kidney disease; E78.5 Hyperlipidemia, unspecified; N31.2 Flaccid neuropathic bladder, not elsewhere classified; G47.33 Obstructive sleep apnea (adult) (pediatric); G20 Parkinson's disease; E55.9 Vitamin D deficiency, unspecified; N40.0 Benign prostatic hyperplasia without lower urinary tract symptoms; Z51.5 Encounter for palliative care
CPT/HCPCS: 36415; 51702; 71250; 76770; 80048; 80053; 82550; 82805; 84145; 85027; 86850; 86900; 86901; 87040; 87077; 93005; 93306; 96361; 96365; 96375; 99223; 99291; U0003; 70450; 72125; 74019; 74176; 81003; 81015; 82728; 83605; 83615; 83735; 83874; 83880; 84443; 84450; 84460; 84484; 85014; 85018; 85025; 85610; 85730; 87086; 87186; 93010; L0172